=== PATIENT | female | born 1935 | race Caucasian/White ===

== ENCOUNTER 2017-05-24 09:34 | Inpatient (IN) | payer OTHER, MEDICARE ==
--- NOTE | 2017-05-24 10:03 | PDOC ---
*Physical Exam - Vital Signs Last Vital Signs Temp Pulse Resp BP Pulse Ox 97.6 F 97 H 24 130/62 96 05/24/17 09:38 05/24/17 09:38 05/24/17 09:38 05/24/17 09:38 05/24/17 09:38 <Brian Sidhu - Last Filed: 05/24/17 11:46> - Vital Signs Last Vital Signs Temp Pulse Resp BP Pulse Ox 97.6 F 97 H 24 130/62 96 05/24/17 09:38 05/24/17 09:38 05/24/17 09:38 05/24/17 09:38 05/24/17 09:38 <Amy Alfonso - Last Filed: 05/26/17 09:49> Heart Score/ECG Review #1 05/24/17 11:46 Vent rate 82 bpm Sinus rhythm with premature atrial complexes Low voltage QRS Borderline ECG <Brian Sidhu - Last Filed: 05/24/17 11:46> ED Treatment Course - LABORATORY CBC & Chemistry Diagram: 05/24/17 10:26 05/24/17 10:26 - ADDITIONAL ORDERS Additional order review: Laboratory Results 05/24/17 05/24/17 10:26 10:26 PT with INR 15.30 H INR 1.35 H Sodium 132 L Potassium 3.4 L Chloride 97 L Carbon Dioxide 26 Anion Gap 9 BUN 13 Creatinine 0.7 Creat Clearance w eGFR > 60 Random Glucose 93 Calcium 8.1 L Total Bilirubin 8.8 H D AST 241 H ALT 306 H Alkaline Phosphatase 728 H Total Protein 8.5 H Albumin 2.3 L Total Amylase 39 Lipase 138 05/24/17 10:26 RBC 2.55 L D MCV 108.3 H MCHC 33.2 RDW 20.7 H D MPV 7.7 Neutrophils % No Result Required. Lymphocytes % No Result Required. <Brian Sidhu - Last Filed: 05/24/17 11:46> - LABORATORY CBC & Chemistry Diagram: 05/26/17 06:30 05/26/17 06:30 <Amy Alfonso - Last Filed: 05/26/17 09:49> Medical Decision Making - Medical Decision Making 05/26/17 09:48 Pt seen in ED in conjunction with [employer], pt was referred to ED by PCP Dr Carrillo, for evaluation of weakness and jaundice, pt with abnormal lft's, sono done and pt was admitted to hospital under Dr Carrillo service for Jaundice and continued weakness. <Amy Alfonso - Last Filed: 05/26/17 09:49> *DC/Admit/Observation/Transfer <Brian Sidhu - Last Filed: 05/24/17 11:46> <Amy Alfonso - Last Filed: 05/26/17 09:49> Diagnosis at time of Disposition: Elevated bilirubin, Weakness
[2017-05-24 10:43] LABS: HEMATOCRIT 27.7 % (32.4-45.2); HEMOGLOBIN 9.2 GM/dL (10.7-15.3); MCHC 33.2 g/dl (32.0-36.0); MEAN CELL VOLUME 108.3 fl (80-96); MEAN PLT VOLUME 7.7 fl (7.5-11.1); PLATELET COUNT 251 K/MM3 (134-434); RBC 2.55 M/mm3 (3.60-5.2); RDW 20.7 % (11.6-15.6); WHITE BLOOD COUNT 9.8 K/mm3 (4.0-10.0)
[2017-05-24 11:03] LABS: INR 1.35 (0.82-1.09); PROTHROMBIN TIME (PATIENT) 15.3 SEC (9.98-11.88)
[2017-05-24 11:07] LABS: ALBUMIN 2.3 g/dl (3.4-5.0); ALK PHOS 728 U/L (45-117); AMYLASE 39 U/L (25-115); ANION GAP 9 (8-16); BILIRUBIN,TOTAL 8.8 mg/dL (0.2-1.0); BLOOD UREA NITROGEN 13 mg/dL (7-18); CALCIUM 8.1 mg/dL (8.5-10.1); CHLORIDE 97 mmol/L (98-107); CO2 26 mmol/L (21-32); CREATININE 0.7 mg/dL (0.55-1.02); GLUCOSE,RANDOM 93 mg/dL (74-106); LIPASE 138 U/L (73-393); POTASSIUM 3.4 mmol/L (3.5-5.1); SGOT/AST 241 U/L (15-37); SGPT/ALT 306 U/L (12-78); SODIUM 132 mmol/L (136-145); TOT PROT 8.5 g/dl (6.4-8.2)
--- NOTE | 2017-05-24 11:34 | PDOC ---
History of Present Illness - General Chief Complaint: Weakness Stated Complaint: SENT BY PCP Time Seen by Provider: 05/24/17 09:56 History Source: Patient Exam Limitations: No Limitations - History of Present Illness Initial Comments: 05/24/17 11:04 82-year-old female with no past medical history was sent by her PCP Dr. Nagy for evaluation of elevated bilirubin, jaundice, and generalized weakness over the past week. Patient has no other complaints at this time including chest pain, shortness of breath, fever, change in bowel pattern, change in urine pattern, increased bruising, or abdominal distention. Timing/Duration: 1 week Severity: moderate Associated Symptoms: reports: malaise, weakness Past History - Travel Traveled outside of the country in the last 30 days: No - Past Medical History Allergies/Adverse Reactions: Allergies Allergy/AdvReac Type Severity Reaction Status Date / Time No Known Allergies Allergy Verified 05/24/17 09:43 Home Medications: Ambulatory Orders NK [No Known Home Medication] 05/24/17 COPD: No - Suicide/Smoking/Psychosocial Hx Smoking History: Never smoked Patient Lives Alone: Yes Lives with/in: lives alone Review of Systems - Review of Systems Able to Perform ROS?: Yes Constitutional: Yes: Weakness HEENTM: No: Symptoms Reported Respiratory: No: Symptoms reported Cardiac (ROS): No: Symptoms Reported ABD/GI: No: Symptoms Reported : No: Symptoms Reported Musculoskeletal: Yes: Muscle Weakness Integumentary: No: Symptoms Reported Neurological: Yes: Weakness Hematologic/Lymphatic: No: Symptoms Reported *Physical Exam - Vital Signs Last Vital Signs Temp Pulse Resp BP Pulse Ox 97.6 F 97 H 24 130/62 96 05/24/17 09:38 05/24/17 09:38 05/24/17 09:38 05/24/17 09:38 05/24/17 09:38 - Physical Exam General Appearance: Yes: Nourished, Appropriately Dressed. No: Apparent Distress HEENT: positive: EOMI, RIGOBERTO, Scleral Icterus (R), Scleral Icterus (L) Neck: positive: Supple Respiratory/Chest: positive: Lungs Clear, Normal Breath Sounds. negative: Respiratory Distress, Accessory Muscle Use Cardiovascular: positive: Regular Rhythm, Regular Rate. negative: Murmur Gastrointestinal/Abdominal: positive: Soft. negative: Organomegaly, Distended, Guarding, Rebound, Tenderness Musculoskeletal: negative: CVA Tenderness Extremity: positive: Normal Capillary Refill. negative: Pedal Edema Integumentary: positive: Normal Color, Warm, Moist Neurologic: positive: Normal Mood/Affect, Motor Strength 5/5 (ambulatory) ED Treatment Course - LABORATORY CBC & Chemistry Diagram: 05/24/17 10:26 05/24/17 10:26 - ADDITIONAL ORDERS Additional order review: 05/24/17 10:26 RBC 2.55 L D MCV 108.3 H MCHC 33.2 RDW 20.7 H D MPV 7.7 Neutrophils % No Result Required. Lymphocytes % No Result Required. - RADIOLOGY Radiology Studies Ordered: Category Date Time Status ABDOMEN US -LIMITED [US] Stat Ultrasound 05/24/17 10:09 Ordered Medical Decision Making - Medical Decision Making 05/24/17 11:53 Patient here for evaluation of jaundice and generalized weakness for the past week. Patient had a CT of the abdomen done earlier this week that showed inflammatory process in the right upper quadrant recommending ultrasound. CT showed no signs of pancreatitis or biliary duct obstruction. i will contact Dr. Nagy. 05/24/17 12:44 Laboratory Tests 05/24/17 05/24/17 05/24/17 10:26 10:26 10:26 WBC 9.8 D Hgb 9.2 L D Hct 27.7 L D Plt Count 251 PT with INR 15.30 H INR 1.35 H Sodium 132 L Potassium 3.4 L Chloride 97 L Calcium 8.1 L Total Bilirubin 8.8 H D AST 241 H ALT 306 H Alkaline Phosphatase 728 H Total Protein 8.5 H Albumin 2.[address] Mac and wants to admit to med/surg and to consult GI. Ultrasound results pending. *DC/Admit/Observation/Transfer Diagnosis at time of Disposition: Elevated bilirubin, Weakness - Discharge Dispostion Admit: Yes - Referrals - Patient Instructions - Post Discharge Activity
[2017-05-24] MEDS ORDERED: SODIUM CHLORIDE 1,000 ML IV STA (11:56)
--- NOTE | 2017-05-24 12:03 | EKG ---
Test Reason : Blood Pressure : / mmHG Vent. Rate : 082 BPM Atrial Rate : 082 BPM P-R Int : 168 ms QRS Dur : 082 ms QT Int : 402 ms P-R-T Axes : 037 -14 011 degrees QTc Int : 469 ms SINUS RHYTHM WITH PREMATURE ATRIAL COMPLEXES LOW VOLTAGE QRS BORDERLINE ECG WHEN COMPARED WITH ECG OF 28-DEC-2014 10:15, PREMATURE ATRIAL COMPLEXES ARE NOW PRESENT Confirmed by MD MEÑO, JORDAN ([id number]) on 05/24/2017 12:02:47 PM Referred By: Confirmed By:JORDAN WILDER MD
[2017-05-24 12:14] LABS: ANISOCYTOSIS 2+; MACROCYTOSIS 2+; PLATELET ESTIMATE NORMAL
--- NOTE | 2017-05-24 13:39 | HP ---
Admitting History and Physical - Primary Care Physician PCP: Med Aguila - Admission Chief Complaint: JAUNDICE History of Present Illness: ANOREXIA/PAINLESS JAUNDICE/WEAKNESS OVER PAST THREE WEEKS. 82-year-old female with no past medical history was sent to ER by me for evaluation of elevated bilirubin, jaundice, and generalized weakness over the past week. Patient has no other complaints at this time including chest pain, shortness of breath, fever, change in bowel pattern, change in urine pattern, increased bruising, or abdominal pain. 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 Cardiovascular: No: AFIB Pulmonary: No: Asthma Gastrointestinal: No: Ascites, Cancer, Crohn's Disease Hepatobiliary: No: Cirrhosis Heme/Onc: Yes: Anemia Psych: No: Addictions Rheumatology: No: Fibromyalgia ENT: No: Allergic Rhinitis Endocrine: No: Diabetes Mellitus - Smoking History Smoking history: Never smoked - Alcohol/Substance Use Hx Alcohol Use: No History of Substance Use: reports: None - Social History Usual Living Arrangement: Yes: Alone History of Recent Travel: No Home Medications - Allergies Allergies/Adverse Reactions: Allergies Allergy/AdvReac Type Severity Reaction Status Date / Time No Known Allergies Allergy Verified 05/24/17 09:43 - Home Medications Home Medications: Ambulatory Orders NK [No Known Home Medication] 05/24/17 Family Disease History - Family Disease History Family History: Unremarkable Review of Systems - Review of Systems Constitutional: reports: Lethargy, Loss of Appetite, Unintentional Wgt. Loss, Weakness. denies: Fever Eyes: denies: Blurred Vision HENT: denies: Difficult Swallowing Neck: denies: Decreased ROM Cardiovascular: denies: Chest Pain Respiratory: denies: Cough, SOB on Exertion Gastrointestinal: denies: Abdominal Pain, Bloating, Constipation, Diarrhea, Vomiting Genitourinary: reports: No Symptoms Breasts: reports: No Symptoms Reported Musculoskeletal: reports: No Symptoms Integumentary: reports: No Symptoms Neurological: reports: Weakness Endocrine: reports: No Symptoms Hematology/Lymphatic: reports: No Symptoms Psychiatric: reports: Depression Physical Examination Vital Signs: Vital Signs Temperature 97.6 F 05/24/17 09:38 Pulse Rate 76 05/24/17 12:34 Respiratory Rate 17 05/24/17 12:34 Blood Pressure 127/57 05/24/17 12:34 O2 Sat by Pulse Oximetry (%) 96 05/24/17 09:38 Constitutional: Yes: Calm Eyes: Yes: EOM Intact, Sclera Icterus HENT: Yes: Normocephalic Neck: Yes: Trachea Midline Cardiovascular: Yes: Regular Rate and Rhythm Respiratory: Yes: CTA Bilaterally Gastrointestinal: Yes: Normal Bowel Sounds, Soft ...Rectal Exam: Yes: Deferred Renal/: Yes: WNL Breast(s): Yes: WNL Musculoskeletal: Yes: WNL Extremities: Yes: WNL Integumentary: Yes: Jaundice Neurological: Yes: Alert Labs: CBC, BMP 05/24/17 10:26 05/24/17 10:26 rest reviewed Imaging - Results Chest X-ray: Report Reviewed, Image Reviewed Cat Scan: Report Reviewed, Image Reviewed Ultrasound: Report Reviewed Problem List - Problems (1) Jaundice Code(s): R17 - UNSPECIFIED JAUNDICE (2) Elevated bilirubin Code(s): R17 - UNSPECIFIED JAUNDICE (3) Weakness Code(s): R53.1 - WEAKNESS (4) Anorexia Code(s): R63.0 - ANOREXIA (5) Weight loss Code(s): R63.4 - ABNORMAL WEIGHT LOSS Assessment/Plan PAINLESS JAUNDICE WITH PROGRESSIVE ANOREXIA AND WEIGHT LOSS CONCERNS FOR NEOPLASTIC DISEASE WILL ASK GI TO EVAL CT ABD/US ALREADY PERFORMED CA-19-9 /CEA LEVELS ARE MAXWELL AGUILA MD
--- NOTE | 2017-05-24 14:55 | CON.GI ---
Consult Consult Specialty:: Gastreoenterology Referred by:: Dr Nagy Reason for Consultation:: Jaundice - History of Present Illness Chief Complaint: Jaundice and weight loss History of Present Illness: 82F developed anoreaxi and wekaness about 3 weeks ago. Seen in the office by Dr Nagy who noted her jaundice and referred her for a CT scan at [facility]. This revealed some GB wall thickening vs a gallstone but no ductal dilation. Today's sonogram reveals no gallstones. She has had a diffuse abdominal ache but no colicky pain, vomiting or diarrhea. She denies any h/o liver disease but her father age 42 of liver disease. She has a glass of wine once a week. No IVDA,tattoos or tranfusions. 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 : [employer] [facility] History of Recent Travel: No Home Medications - Allergies Allergies/Adverse Reactions: Allergies Allergy/AdvReac Type Severity Reaction Status Date / Time No Known Allergies Allergy Verified 05/24/17 09:43 - Home Medications Home Medications: Ambulatory Orders NK [No Known Home Medication] 05/24/17 Family Disease History - Family Disease History Family Disease History: CA: Brother ( lung cancer, smoker), Other: Father ( 42 liver disease), Mother (lived to 78), Sister (lived to 101) Review of Systems - Review of Systems Constitutional: reports: Lethargy, Loss of Appetite, Unintentional Wgt. Loss Eyes: reports: No Symptoms HENT: reports: No Symptoms Neck: reports: No Symptoms Cardiovascular: reports: No Symptoms Respiratory: reports: No Symptoms Gastrointestinal: reports: Abdominal Pain Genitourinary: reports: No Symptoms Musculoskeletal: reports: No Symptoms Integumentary: reports: No Symptoms Neurological: reports: No Symptoms Endocrine: reports: No Symptoms Physical Exam-GI Vital Signs: Vital Signs Temperature 97.6 F 05/24/17 09:38 Pulse Rate 76 01/27/18 12:34 Respiratory Rate 17 05/24/17 12:34 Blood Pressure 127/57 05/24/17 12:34 O2 Sat by Pulse Oximetry (%) 100 05/24/17 13:33 CBC,CMP WBC 9.8 K/mm3 (4.0-10.0) D 05/24/17 10:26 RBC 2.55 M/mm3 (3.60-5.2) L D 05/24/17 10:26 Hgb 9.2 GM/dL (10.7-15.3) L D 05/24/17 10:26 Hct 27.7 % (32.4-45.2) L D 05/24/17 10:26 MCV 108.3 fl (80-96) H 05/24/17 10:26 MCH 36.0 pg (25.7-33.7) H D 05/24/17 10:26 MCHC 33.2 g/dl (32.0-36.0) 05/24/17 10:26 RDW 20.7 % (11.6-15.6) H D 05/24/17 10:26 Plt Count 251 K/MM3 (134-434) 05/24/17 10:26 MPV 7.7 fl (7.5-11.1) 05/24/17 10:26 Neutrophils % No Result Required. 05/24/17 10:26 Neutrophils % (Manual) 64.7 % (42.8-82.8) 05/24/17 10:26 Band Neutrophils % 1.0 % 05/24/17 10:26 Lymphocytes % No Result Required. 05/24/17 10:26 Lymphocytes % (Manual) 13.1 % (8-40) 05/24/17 10:26 Monocytes % (Manual) 10 % (3.8-10.2) 05/24/17 10:26 Eosinophils % (Manual) 9.1 % (0-4.5) H 05/24/17 10:26 Basophils % (Manual) 1.0 % (0-2.0) 05/24/17 10:26 Myelocytes % (Man) 0 % (0-2) 05/24/17 10:26 Promyelocytes % (Man) 0 % (0-2) 05/24/17 10:26 Metamyelocytes 0 % (0-2) 05/24/17 10:26 Plasma Cells 1 (0-20) 05/24/17 10:26 Hypochromia 0 05/24/17 10:26 Platelet Estimate Normal 05/24/17 10:26 Polychromasia 2+ 05/24/17 10:26 Poikilocytosis 0 05/24/17 10:26 Anisocytosis 2+ 05/24/17 10:26 Microcytosis 0 05/24/17 10:26 Macrocytosis 2+ 05/24/17 10:26 Stomatocytes 3+ 05/24/17 10:26 Sodium 132 mmol/L (136-145) L 05/24/17 10:26 Potassium 3.4 mmol/L (3.5-5.1) L 05/24/17 10:26 Chloride 97 mmol/L (98-107) L 05/24/17 10:26 Carbon Dioxide 26 mmol/L (21-32) 05/24/17 10:26 Anion Gap 9 (8-16) 05/24/17 10:26 BUN 13 mg/dL (7-18) 05/24/17 10:26 Creatinine 0.7 mg/dL (0.55-1.02) 05/24/17 10:26 Creat Clearance w eGFR > 60 (>60) 05/24/17 10:26 Random Glucose 93 mg/dL (74-106) 05/24/17 10:26 Calcium 8.1 mg/dL (8.5-10.1) L 05/24/17 10:26 Total Bilirubin 8.8 mg/dL (0.2-1.0) H D 05/24/17 10:26 AST 241 U/L (15-37) H 05/24/17 10:26 ALT 306 U/L (12-78) H 05/24/17 10:26 Alkaline Phosphatase 728 U/L (45-117) H 05/24/17 10:26 Total Protein 8.5 g/dl (6.4-8.2) H 05/24/17 10:26 Albumin 2.3 g/dl (3.4-5.0) L 05/24/17 10:26 Total Amylase 39 U/L (25-115) 05/24/17 10:26 Lipase 138 U/L (73-393) 05/24/17 10:26 Constitutional: Yes: Well Nourished, Calm Eyes: Yes: Sclera Icterus HENT: Yes: Atraumatic Neck: Yes: Supple Cardiovascular: Yes: Regular Rate and Rhythm Respiratory: Yes: CTA Bilaterally Gastrointestinal Inspection: Yes: Other (no scars) ...Palpate: Yes: Soft, Other (nontender, no masses) ...Rectal Exam: Yes: Guaiac Negative (no rectal masses) Labs: CBC, BMP 05/24/17 10:26 05/24/17 10:26 INR, PTT INR 1.35 (0.82-1.09) H 05/24/17 10:26 Imaging - Results Cat Scan: Report Reviewed (Christopher Aguilera Name: [facility] GAR[facility] DEPARTMENT OF RADIOLOGY Phys: Med Nagy MD : 1935 Age: 82 Sex: F [facility] Acct: [id number] Loc: [facility] [address] [facility]. Exam Date: 05/21/17 Status: REG REF JALEN Domínguez [address] Unit Number: [id number] EXAM#: TYPE/EXAM: RESULT: [id number] CT/ABDOMEN PELVIS CT W/O CONTR EXAM: CT abdomen and pelvis without contrast. INDICATION: Other chronic pancreatitis. TECHNIQUE: CT of the abdomen and pelvis without oral contrast and without intravenous contrast. COMPARISON: None available. FINDINGS: Evaluation of the solid viscera, vessels and bowel is limited without contrast. There is traction bronchiectasis in the right middle lobe and lingula. There is subpleural reticulation in the left lung base and right middle lobe and multifocal linear scarring bilateral lower lobes, right middle lobe and lingula. There is a 4 mm nodule in the left lung base (image 14 of series 4). The heart is not enlarged. The liver is normal in size and contour. There is mild hepatic steatosis. Nodular calcification in the left hepatic lobe may be the sequela of prior granulomatous disease. The spleen is borderline enlarged, measuring 11.5 x 7.5 cm. The gallbladder is not pathologically distended. There is focal gallbladder wall thickening versus layering cholelithiasis. There is nonspecific gallbladder wall thickening. The common bile duct is not dilated. The unenhanced pancreas is grossly unremarkable. There is a subcentimeter nodularity along the left adrenal gland which may be attributed to adenomatous hyperplasia. No nodular mass in the right adrenal gland. Normal size kidneys. No obstructive uropathy. No urinary tract calculus identified. Normal caliber abdominal aorta. There are no pathologically enlarged retroperitoneal lymph nodes by CT size criteria. The stomach is underdistended, which limits evaluation. There is a very small hiatal hernia. There is no bowel obstruction. There is no CT evidence of acute appendicitis or diverticulitis. There is no free intraperitoneal air. No free fluid within the abdomen or pelvis. The urinary bladder is underdistended, limiting evaluation. The uterus is lobulated and leiomyomatous. There are no pathologically enlarged pelvic sidewall lymph nodes by CT size criteria. There are small bilateral fat- containing inguinal hernias. There is osseous demineralization with no evidence of acute fracture in the visualized osseous structures. There is degenerative grade 1 anterolisthesis of L4 on L5, measuring 7 mm. At L4-L5, there is severe disc space narrowing, facet hypertrophy with uncovering of the posterior annulus resulting in severe canal stenosis and mild to moderate narrowing of both neural foramina. There are mild to moderate osteoarthritic changes in both hips. IMPRESSION: 1. No CT evidence of pancreatitis at this time. No pancreatic parenchymal calcifications to suggest chronic pancreatitis. 2. Focal gallbladder wall calcification versus cholelithiasis. No CT evidence of acute cholecystitis. Gallbladder wall thickening is nonspecific with a broad differential including chronic cholecystitis and adjacent right upper quadrant inflammatory processes. Please correlate clinically and with right upper quadrant ultrasound. 3. Mild hepatic steatosis. 4. Borderline mild splenomegaly. 5. Lumbar spondylosis with degenerative grade 1 anterolisthesis of L4 and L5 and severe canal stenosis at L4-L5 as described above. 6. Please refer to the report above for additional findings. Reported By: Mendy Odom DO 05/21/171628 Med Nagy Technologist: Lam Riddle Transcribed Date/Time: 05/21/171628 Warehouse Coordinator: Mendy Odom DO Printed Date/Time: By: Signed by : Mendy Odom Signed on: 21-May-2017 16:29) Ultrasound: Report Reviewed (Karrie Aguilera Name: RICO GARNETT DEPARTMENT OF RADIOLOGY Phys: Beata Flores DEBATE DIRECTOR : 1935 Age: 82 Sex: F [facility] Acct: [id number] Loc: [facility] [facility] Exam Date: 05/24/17 Status: JALEN Pearson [id number] Unit Number: [id number] EXAM#: TYPE/EXAM: RESULT: [id number] US/ABDOMEN US -LIMITED HISTORY PROVIDED: Right upper quadrant pain. Real time examination of the abdomen demonstrates the following: The gallbladder is normal in size and free of calculi with no evidence of intra or extrahepatic biliary duct dilatation. The liver is normal in size and texture with no intrahepatic masses seen. Hepatopedal flow is documented within the main portal vein on Doppler imaging. The pancreas is normal in size and texture with no pancreatic masses identified. There is no evidence of hydronephrosis or acute abnormalities of the right kidney. There is no evidence of AAA. The IVC is patent. IMPRESSION: Normal abdominal sonogram with no evidence of cholelithiasis or acute pathology. Reported By: Nickolas Tavarez MD 05/24/17 1254 Beata Flores Technologist: Isa Partida Transcribed Date/Time: 05/24/17 1254 Warehouse Coordinator: Nickolas Tavarez Printed Date/Time: By: Signed by: Nickolas Tavarez Signed on: 24-May-2017 12:54) Problem List - Problems (1) Abdominal pain Assessment/Plan: The pain and anemia raise the possibility of a UGI neoplasm invading the liver directly. May need an EGD and colonoscopy Code(s): R10.9 - UNSPECIFIED ABDOMINAL PAIN (2) Anorexia Code(s): R63.0 - ANOREXIA (3) Jaundice Assessment/Plan: The LFT pattern suggests acute obstructive jaundice but given lack of ductal dilation and gallstones need to consider hepatocellular disease. No obvious recent drug usage to implicate drug induced liver disease. Given her FH, hypoalbuminemia, anemia, mild coagulopathy will screen for chronic liver disease. Will pursue MRCP and MRI to look for a small pancreatic neoplasm. If MRCP reveals obstruction will consider ERCP for stent insertion, otherwise may need to refer for an EUS as an outpatient. I discussed the potential need for an ERCP and the risks of pancreatitis with multiorgan failure, perforation and hemorrhage so that Rico can make an informed consent if necessary. Told her same risks exist for EGD and colonoscopy aside from the pancreatitis. Code(s): R17 - UNSPECIFIED JAUNDICE (4) Elevated bilirubin Code(s): R17 - UNSPECIFIED JAUNDICE (5) Weakness Code(s): R53.1 - WEAKNESS (6) Weight loss Code(s): R63.4 - ABNORMAL WEIGHT LOSS
[2017-05-24] MEDS ORDERED: PHYTONADIONE 10 MG/1 ML AMP IM ONE (15:18)
[2017-05-24 16:47] VITALS: BMI 24.4
[2017-05-24 17:25] LABS: URINE APPEARANCE CLEAR; URINE BLOOD NEGATIVE (NEGATIVE); URINE COLOR AMBER; URINE GLUCOSE (UA) NEGATIVE (NEGATIVE); URINE KETONE TRACE (NEGATIVE); URINE NITRITE NEGATIVE (NEGATIVE); URINE PROTEIN NEGATIVE (NEGATIVE); URINE UROBILINOGEN 4.0 E.U/dl mg/dL (0.2-1.0)
[2017-05-24 17:59] LABS: URINE LEUK ESTERASE 1+ (NEGATIVE)
[2017-05-24 18:06] LABS: EPI CELLS RARE /HPF (FEW); URINE BACTERIA RARE /hpf (NONE SEEN); URINE MUCUS FEW
[2017-05-25 07:52] LABS: BASO % 2.4 % (0-2.0); EOS % 12.8 % (0-4.5); HEMATOCRIT 24.3 % (32.4-45.2); HEMOGLOBIN 8.2 GM/dL (10.7-15.3); LYMPH % 16.6 % (8-40); MCH 37.2 pg (25.7-33.7); MCHC 33.6 g/dl (32.0-36.0); MEAN CELL VOLUME 110.6 fl (80-96); MEAN PLT VOLUME 7.8 fl (7.5-11.1); NEUT % 59.2 % (42.8-82.8); PLATELET COUNT 229 K/MM3 (134-434); RDW 20.6 % (11.6-15.6); RETICULOCYTES 11.56 % (0.5-1.5); WHITE BLOOD COUNT 8.7 K/mm3 (4.0-10.0)
[2017-05-25 08:13] LABS: CHLORIDE 102 mmol/L (98-107); POTASSIUM 3.5 mmol/L (3.5-5.1); SODIUM 135 mmol/L (136-145)
[2017-05-25 08:27] LABS: INR 1.33 (0.82-1.09)
[2017-05-25 08:28] LABS: ALK PHOS 613 U/L (45-117); ANION GAP 8 (8-16); BILIRUBIN,TOTAL 6.4 mg/dL (0.2-1.0); BLOOD UREA NITROGEN 10 mg/dL (7-18); CALCIUM 7.5 mg/dL (8.5-10.1); CO2 25 mmol/L (21-32); CREATININE 0.6 mg/dL (0.55-1.02); GLUCOSE,RANDOM 79 mg/dL (74-106); SGOT/AST 224 U/L (15-37); SGPT/ALT 242 U/L (12-78); TOT PROT 7.2 g/dl (6.4-8.2)
--- NOTE | 2017-05-25 12:11 | PN ---
Progress Note (short form) - Note Progress Note: MEDICAL ATTENDING VSS/AFEBRILE ICTERIC CLEAR LUNG GREENE S1S2 BS+ SOFT NONTENDER NEGATIVE HEPATOSPLENOMEGALY NO EDEMA LABS/MEDS/NOTES/IMAGES GI EVAL APPRECIATED W/U THUS FAR UNREVEALING AGREE WITH IMAGING STUDIES/SEROLOGY PENDING R AYLA CANDELARIO Problem List - Problems (1) Jaundice Code(s): R17 - UNSPECIFIED JAUNDICE (2) Elevated bilirubin Code(s): R17 - UNSPECIFIED JAUNDICE (3) Weakness Code(s): R53.1 - WEAKNESS (4) Anorexia Code(s): R63.0 - ANOREXIA (5) Weight loss Code(s): R63.4 - ABNORMAL WEIGHT LOSS
--- NOTE | 2017-05-25 14:22 | PN ---
GI Progress Note Subjective: GI Note: Jordana's LFTs, in particular her bilirubin and alkaline phosphatase has decreased significantly since yesterday. Her anemia has also worsened however. Doppler has exclude Budd Chiari Syndrome. Her CRP argues against a neoplasm or infection. Her low CRP argues against attributing her elevated ferritin to an acute phase reaction. She may have hemochromatosis. - Objective Vital Signs: Vital Signs Temperature 98.0 F 05/25/17 10:00 Pulse Rate 82 05/25/17 10:00 Respiratory Rate 18 05/25/17 10:00 Blood Pressure 112/56 05/25/17 10:00 O2 Sat by Pulse Oximetry (%) 96 05/25/17 09:00 Laboratory Tests 05/24/17 05/24/17 05/24/17 10:26 10:26 10:26 Hgb 9.2 L D Hct 27.7 L D Plt Count 251 PT with INR 15.30 H INR 1.35 H Ferritin Total Bilirubin 8.8 H D AST 241 H ALT 306 H Alkaline Phosphatase 728 H C-Reactive Protein Albumin 2.3 L Total Amylase 39 Lipase 138 05/25/17 05/25/17 06:00 06:00 Hgb 8.2 L D Hct Plt Count PT with INR INR Ferritin 1269.506 H Total Bilirubin 6.4 H D AST 224 H ALT 242 H Alkaline Phosphatase 613 H C-Reactive Protein 1.8 H Albumin Total Amylase Lipase Constitutional: No Distress, Anxious Eyes: Yes: Sclera Icterus ...Auscultate: Yes: Normoactive Bowel Sounds ...Palpate: Yes: Soft, Other (nontender) Labs: CBC, BMP 05/25/17 06:00 05/25/17 06:00 INR, PTT INR 1.33 (0.82-1.09) H 05/25/17 06:00 Problem List - Problems (1) Abdominal pain Code(s): R10.9 - UNSPECIFIED ABDOMINAL PAIN (2) Anorexia Code(s): R63.0 - ANOREXIA (3) Jaundice Assessment/Plan: Obstructive jaundice vs hepatocellular disease vs hemolysis. Her dwindling Hb and elevated retic suggest hemolysis. I have asked the lab to run a direct bilirubin. Will check haptoglobin, LDH etc. I discussed the case with Dr Nagy and will consult hematology. Hemachromatosis would not explain the LFT fluctuation. She did take 1 dose of an NSAID a week before her symptoms began. Await MRCP and MRI. Code(s): R17 - UNSPECIFIED JAUNDICE (4) Elevated bilirubin Code(s): R17 - UNSPECIFIED JAUNDICE (5) Weakness Code(s): R53.1 - WEAKNESS (6) Weight loss Code(s): R63.4 - ABNORMAL WEIGHT LOSS
[2017-05-25] MEDS ORDERED: ACETAMINOPHEN 325 MG TABLET (FP) PO PRN (21:32)
[2017-05-25] MEDS ORDERED: methylPREDNISolone NA SUCC 40 MG/1 ML VIAL IVPUSH ONE (21:45)
[2017-05-25] MEDS: DEXTROSE 5%-0.45% SALINE 1,000 ML IV SCH (22:22)
[2017-05-26 06:07] LABS: SERUM IRON SATURATION 80 % (15-55); TOTAL IRON BINDING CAPACITY 205 ug/dL (250-450); UIBC 42 ug/dL (118-369)
[2017-05-26 07:54] LABS: BASO % 2.2 % (0-2.0); EOS % 1.8 % (0-4.5); HEMATOCRIT 25.1 % (32.4-45.2); HEMOGLOBIN 8.2 GM/dL (10.7-15.3); LYMPH % 12.4 % (8-40); MCH 36.8 pg (25.7-33.7); MCHC 32.8 g/dl (32.0-36.0); MEAN CELL VOLUME 112.3 fl (80-96); MONO % 7.6 % (3.8-10.2); PLATELET COUNT 197 K/MM3 (134-434); RBC 2.24 M/mm3 (3.60-5.2); RDW 20.6 % (11.6-15.6); WHITE BLOOD COUNT 7.5 K/mm3 (4.0-10.0)
[2017-05-26 08:05] LABS: ALBUMIN 1.9 g/dl (3.4-5.0); ANION GAP 6 (8-16); BILIRUBIN,DIRECT 4.7 mg/dL (0.0-0.2); BILIRUBIN,TOTAL 5.8 mg/dL (0.2-1.0); BLOOD UREA NITROGEN 12 mg/dL (7-18); CALCIUM 7.5 mg/dL (8.5-10.1); CHLORIDE 106 mmol/L (98-107); CO2 26 mmol/L (21-32); CREATININE 0.6 mg/dL (0.55-1.02); GLUCOSE,RANDOM 135 mg/dL (74-106); LDH 514 U/L (84-246); POTASSIUM 4.5 mmol/L (3.5-5.1); SGOT/AST 181 U/L (15-37); SGPT/ALT 226 U/L (12-78); SODIUM 138 mmol/L (136-145); TOT PROT 7.2 g/dl (6.4-8.2)
[2017-05-26 08:06] LABS: ALK PHOS 641 U/L (45-117)
[2017-05-26 08:08] LABS: ADD RBC MORPHOLOGY YES
--- NOTE | 2017-05-26 09:07 | PN ---
Progress Note, Physician Chief Complaint: ID Asked to see this 82 year old female who says she has never been in the hospital with weight loss weakness anorexia jaundice elevated LFTs. Sonogram shows no gall stones or dilatation. Seen by Dr Wilson yesterday MRCP considered. Abdominal discomfort but no pain. Afebrile on admission but spike fever 102.6 felt warm no chills. Cultures drawn. Currently she feels well Denies couph urinary complaints, travel. lives alone with her dog. - Current Medication List Current Medications: Active Medications Acetaminophen (Tylenol -) 650 mg PO Q4H PRN PRN Reason: PAIN OR FEVER >101 Last Admin: 05/25/17 22:22 Dose: 650 mg Dextrose/Sodium Chloride (D5-1/2ns -) 1,000 mls @ 42 mls/hr IV ASDIR JANE Last Admin: 05/25/17 22:22 Dose: 42 mls/hr - Objective Vital Signs: Vital Signs Temperature 97.3 F L 05/26/17 07:49 Pulse Rate 80 05/26/17 07:49 Respiratory Rate 18 05/26/17 07:49 Blood Pressure 129/74 05/26/17 07:49 O2 Sat by Pulse Oximetry (%) 97 05/25/17 21:00 Constitutional: Yes: Well Nourished, No Distress Eyes: Yes: WNL, Conjunctiva Clear HENT: Yes: Atraumatic Neck: Yes: WNL, Supple. No: Lymphadenopathy Cardiovascular: Yes: Murmur, S1, S2, Other (grade 2/6 systolic aortic murmur) Respiratory: Yes: WNL, Regular, CTA Bilaterally Gastrointestinal: Yes: WNL, Normal Bowel Sounds, Soft. No: Tenderness Edema: No Labs: CBC, BMP 05/26/17 06:30 05/26/17 06:30 INR, PTT INR 1.33 (0.82-1.09) H 05/25/17 06:00 Problem List - Problems (1) Fever, unknown origin Code(s): R50.9 - FEVER, UNSPECIFIED (2) Elevated LFTs Code(s): R79.89 - OTHER SPECIFIED ABNORMAL FINDINGS OF BLOOD CHEMISTRY (3) Jaundice Code(s): R17 - UNSPECIFIED JAUNDICE (4) Hemolysis Code(s): [id number] - Assessment/Plan Laboratory Tests 05/24/17 05/25/17 05/25/17 16:50 06:00 06:00 WBC Plt Count Neutrophils % Lymphocytes % Monocytes % Basophils % INR 1.33 H BUN Creatinine Total Bilirubin AST ALT Alkaline Phosphatase LD Total Total Protein Tumor Marker AFP Pending CA 19-9 Antigen Pending Ur Leukocyte Esterase 1+ H Urine WBC (Auto) 10 Urine RBC (Auto) 4 Hepatitis A Ab Total Pending Hep Bs Antigen Pending Hep Bs Antibody Pending Hep B Core Total Ab Pending Hepatitis C Antibody Pending 05/26/17 05/26/17 06:30 06:30 WBC 7.5 Plt Count 197 Neutrophils % 76.0 D Lymphocytes % 12.4 D Monocytes % 7.6 Basophils % 2.2 H INR BUN 12 Creatinine 0.6 Total Bilirubin 5.8 H AST 181 H ALT 226 H Alkaline Phosphatase 641 H LD Total 514 H Total Protein 7.2 Tumor Marker AFP CA 19-9 Antigen Ur Leukocyte Esterase Urine WBC (Auto) Urine RBC (Auto) Hepatitis A Ab Total Hep Bs Antigen Hep Bs Antibody Hep B Core Total Ab Hepatitis C Antibody Assessment Fever unknown origin consider passage of gall stone Jaundice ruling out biliary stone Macrocytic anemia consider B12 folate deficiency high reticulocyte count ? hemolysis but mostly direct bilirubin Plan As discussed Should have MRCP Think we should get hematology evaluation to look at smear cold aggluts ect evaluate hemolysis B12 Cultures pending so far blood cultures no growth prelim She does not need antibiotics now but should she spike fever would start Zosyn 4.5grs q 8 H ESR CRP CJ Prescott MD
[2017-05-26 09:27] LABS: ANISOCYTOSIS 2+; MACROCYTOSIS 2+
--- NOTE | 2017-05-26 10:30 | PN ---
Progress Note (short form) - Note Progress Note: Feels about the same. No CP or SOB. Nervous about MRCP. Intake & Output 05/23/17 05/24/17 05/25/17 05/26/17 23:59 23:59 23:59 23:59 Intake Total 300 294 Balance 300 294 Weight 121 lb Last Vital Signs Temp Pulse Resp BP Pulse Ox 97.3 F L 80 18 129/74 97 05/26/17 07:49 05/26/17 07:49 05/26/17 07:49 05/26/17 07:49 05/25/17 21:00 Active Medications Alprazolam (Xanax -) 0.5 mg PO ONCE ONE Stop: 05/26/17 09:31 Dextrose/Sodium Chloride (D5-1/2ns -) 1,000 mls @ 42 mls/hr IV ASDIR JANE Last Admin: 05/25/17 22:22 Dose: 42 mls/hr Constitutional: Yes: Well Nourished, mildly anxious Eyes: Yes: Sclera Icterus HENT: Yes: Atraumatic Neck: Yes: Supple Cardiovascular: Yes: Regular Rate and Rhythm Respiratory: Yes: CTA Bilaterally Gastrointestinal Inspection: Yes: Other (no scars) ...Palpate: Yes: Soft, Other (nontender, no masses) Labs: Laboratory Results - last 24 hr 05/25/17 05/25/17 05/26/17 06:00 14:31 06:30 WBC 7.5 RBC 2.24 L Hgb 8.2 L Hct 25.1 L MCV 112.3 H MCH 36.8 H MCHC 32.8 RDW 20.6 H Plt Count 197 MPV 8.0 Neutrophils % 76.0 D Lymphocytes % 12.4 D Monocytes % 7.6 Eosinophils % 1.8 D Basophils % 2.2 H Anisocytosis 2+ Macrocytosis 2+ Sodium Potassium Chloride Carbon Dioxide Anion Gap BUN Creatinine Random Glucose Calcium Iron 163 H TIBC 205 L Iron Saturation 80 H Total Bilirubin Direct Bilirubin 4.9 H AST ALT Alkaline Phosphatase LD Total Total Protein Albumin 05/26/17 06:30 WBC RBC Hgb Hct MCV MCH MCHC RDW Plt Count MPV Neutrophils % Lymphocytes % Monocytes % Eosinophils % Basophils % Anisocytosis Macrocytosis Sodium 138 Potassium 4.5 Chloride 106 Carbon Dioxide 26 Anion Gap 6 L BUN 12 Creatinine 0.6 Random Glucose 135 H Calcium 7.5 L Iron TIBC Iron Saturation Total Bilirubin 5.8 H Direct Bilirubin 4.7 H AST 181 H ALT 226 H Alkaline Phosphatase 641 H LD Total 514 H Total Protein 7.2 Albumin 1.9 L Problem List - Problems (1) Jaundice Code(s): R17 - UNSPECIFIED JAUNDICE (2) Elevated bilirubin Code(s): R17 - UNSPECIFIED JAUNDICE (3) Weakness Code(s): R53.1 - WEAKNESS (4) Anorexia Code(s): R63.0 - ANOREXIA (5) Weight loss Code(s): R63.4 - ABNORMAL WEIGHT LOSS PLAN: MRCP O2 as needed SCDs Hematology/Oncology evaluation has been called Follow AM labs Xanax has been ordered prior to MRCP Dr Cornejo
--- NOTE | 2017-05-26 10:34 | CONS ---
DATE OF CONSULTATION: HISTORY: This is an 82-year-old female who states she has never been previously hospitalized admitted now for a [id number] of anorexia, generalized weakness, and jaundice. She saw Dr. Guerrero who recommended that she be admitted to the hospital for further evaluation. The workup has included a sonogram, which showed thickening versus a gallstone but no ductal dilatation. On CAT scan, she had a fatty liver but no evidence of a liver mass or common duct dilatation. Her liver enzymes are noted to be elevated, and I am asked to see her now after she developed fever last night to 102.6. At that time, she denied any chills, abdominal pain, urinary complaints, shortness of breath, rash, headaches, or other symptoms. She has no history of recent travel. She lives alone as a for 2 years and has a pet dog as her lpn private duty. She has not been exposed to any person that she knew had any communicable illness and no history of alcohol use or other hepatotoxic medications. PAST MEDICAL HISTORY: As noted above. SOCIAL HISTORY: Never smoked. No history of alcohol use. Lives alone. FAMILY HISTORY: Reviewed and noncontributory. REVIEW OF SYSTEMS: Respiratory: No cough or shortness of breath. Cardiac: No chest pain, palpitations, syncope. Gastrointestinal: Generalized weakness. No abdominal pain. Positive jaundice. Dark urine noted. No change in bowel habits. White stools. Positive weight loss. PHYSICAL EXAMINATION: General: She is an alert female in no acute distress. Vital Signs: The temperature now 97.3, T-max 102.6, pulse 80, blood pressure 130/74, respirations 18. HEENT: Reveals scleral icterus. Neck: Supple with no adenopathy. Lungs: Clear to percussion and auscultation. Heart: S1, S2. Regular rhythm with a 2/6 systolic murmur heard at the lower sternal border. Abdomen: Soft and nontender without hepatosplenomegaly. Extremities: Without clubbing or cyanosis. Skin: Icteric. White count on admission 9.8, hemoglobin 9.2, hematocrit 27.7, MCV 108, platelet count 251 with 65% polys, 1 band, 13 lymphocytes, 10 monocytes, and 9% eosinophils. A reticulocyte count 11.56. INR 1.33. BUN and creatinine normal. Bilirubin on admission 8.8 with an AST 241, ALT 306, alkaline phosphatase 728, total protein 8.5, albumin 2.3, lipase 138, amylase 39. Urinalysis with 10 WBCs, 1+ leukocyte esterase, and 4 RBCs. Hepatitis markers pending. ASSESSMENT: An 82-year-old female who presents with generalized weakness, loss of appetite, and painless jaundice with elevated liver enzymes and a complete blood count with a macrocytic anemia either elevated reticulocyte count suggesting hemolysis. Against hemolysis is the fact that her bilirubin is predominantly direct bilirubin. She spikes fever last night but currently appears well. As directed with Dr. Bansal and Dr. Guerrero, at this point would concur with the need for Hematology evaluation to review her peripheral smear with further workup of her anemia including sedimentation rate, CJ, cold agglutinins, B12, and [place] levels. She should have an MRCP performed to rule out biliary obstruction with fever possibly secondary to biliary obstruction. Cultures of blood and urine currently pending with blood cultures thus far no growth. Should she spike fever again, would empirically treat her with Zosyn 4.5 g every 8 hours. SWETA FERNANDEZ M.D. [id number]
--- NOTE | 2017-05-26 13:48 | PN ---
Physical Exam: SUBJECTIVE: Patient seen and examined at bedside. Lying comfortably. Spiked a fever of 102 overnight. Feels well overall. Abdominal pain has resolved. No new complaints. No headache, CP, palpitations, abdominal pain, N/V. OBJECTIVE: Vital Signs Period Temp Pulse Resp BP Sys/Morales Pulse Ox Last 24 Hr 97.3 F-102.6 F 80-101 18-86 102-137/48-74 97 GENERAL: AAOx3, NAD HEAD: NC/AT EYES: scleral icterus improved. ENT: moist mucous membranes. NECK: supple and no JVD LUNGS: Right sided basilar rales. Otherwise CTAB, no wheezing or rhonchi. HEART:RRR, 2/6 CASIE RSB ABDOMEN: Soft, nontender, normal bowel sound, no rebound or guarding EXTREMITIES: 2+ pulses, warm, well-perfused, trace edema. NEUROLOGICAL: Normal speech PSYCH: Normal mood, normal affect. Laboratory Results - last 24 hr 05/25/17 05/25/17 05/26/17 06:00 14:31 06:30 WBC 7.5 RBC 2.24 L Hgb 8.2 L Hct 25.1 L MCV 112.3 H MCH 36.8 H MCHC 32.8 RDW 20.6 H Plt Count 197 MPV 8.0 Neutrophils % 76.0 D Lymphocytes % 12.4 D Monocytes % 7.6 Eosinophils % 1.8 D Basophils % 2.2 H Anisocytosis 2+ Macrocytosis 2+ Sodium Potassium Chloride Carbon Dioxide Anion Gap BUN Creatinine Random Glucose Calcium Iron 163 H TIBC 205 L Iron Saturation 80 H Total Bilirubin Direct Bilirubin 4.9 H AST ALT Alkaline Phosphatase LD Total C-Reactive Protein Total Protein Albumin Serum Folate 05/26/17 05/26/17 05/26/17 06:30 10:10 10:10 WBC RBC Hgb Hct MCV MCH MCHC RDW Plt Count MPV Neutrophils % Lymphocytes % Monocytes % Eosinophils % Basophils % Anisocytosis Macrocytosis Sodium 138 Potassium 4.5 Chloride 106 Carbon Dioxide 26 Anion Gap 6 L BUN 12 Creatinine 0.6 Random Glucose 135 H Calcium 7.5 L Iron TIBC Iron Saturation Total Bilirubin 5.8 H Direct Bilirubin 4.7 H AST 181 H ALT 226 H Alkaline Phosphatase 641 H LD Total 514 H C-Reactive Protein 1.6 H Total Protein 7.2 Albumin 1.9 L Serum Folate 15 Active Medications Generic Name Dose Route Start Last Admin Trade Name Freq PRN Reason Stop Dose Admin Alprazolam 0.5 mg 05/26/17 09:30 Xanax - PO 05/26/17 09:31 ONCE ONE Dextrose/Sodium Chloride 1,000 mls @ 42 mls/hr 05/25/17 21:45 05/25/17 22:22 D5-1/2ns - IV 42 mls/hr ASDIR JANE Administration ASSESSMENt: Cholestatic liver dysfunction Possibilities in the differential include: * Obstructive process however initial imaging failed to show dilated bile ducts. * No standing medication as cause of DILI * Possible Autoimmune hepatitis/overlap syndrome Heart Murmur: * Unclear if previously evaluated. Plan: Awaiting MRI/MRCP Hepatitis serologies Pending Monitor liver chemistries Avoid hepatotoxic agent. (tylenol discontinued) Work up of heart murmur per PMD. ATTENDING PHYSICIAN STATEMENT I saw and evaluated the patient. I reviewed the resident's note and discussed the case with the resident. I agree with the resident's findings and plan as documented. SUBJECTIVE: No acute events denies abdominal pain OBJECTIVE: + icterus. No oral ulcerations Hrt: RRR + 2/6 CASIE at RSB Lungs: CTA B/L Abd: No scars, non-distended, + normoactive BS, Non-tender, no HSM Ext: No LE edema Neuro: Alert, awake Labs: As above Also Hepatitis serologies unrevealing (including hep A IgM) ASSESSMENT Cholestatic liver dysfunction as described above ? obstructive process / Infectious or Neoplastic diz PLAN: Awaiting MRI/MRCP Discussed possibility of ERCP depending on results. Discussed potential risks of the procedure like but not limited to bleeding, perforation requiring surgery to repair, infection, sedation medication effects and pancreatitis all of which could be potentially life threatening. She has agreed to the procedure if necessary. Monitor LFTs Avoid hepatotoxic agents Alice Moon DO Problem List - Problems (1) Jaundice Assessment/Plan: Given lab values possible cholestatic vs mixed vs neoplasm. * No obstruction seen on US ; Await MRCP this afternoon. * Hgb has been stable for past 48 hrs. ; 8.2 * LFT's are trending down - Hepatitis serology pending * Possible hemolysis given high retic count. LDH elevated and haptoglobin pending. * Tumor markers sent and pending. (2) Macrocytic anemia Assessment/Plan: Possible B12/folate deficiency vs. myelodysplastic disorder. * B12 and folate pending * IgG , cold agglutinins, and CJ pending. * Hematology consult * repeat CBC in AM (3) Abdominal pain (4) Anorexia (5) Elevated LFTs (6) Elevated bilirubin (7) Weight loss Visit type - Emergency Visit Emergency Visit: Yes ED Registration Date: 05/24/17 Care time: The patient presented to the Emergency Department on the above date and was hospitalized for further evaluation of their emergent condition. - New Patient This patient is new to me today: Yes Date on this admission: 05/26/17 - Critical Care Critical Care patient: No
[2017-05-26 14:11] LABS: HBSAG SCREEN Negative (Negative); HEP A AB, IGM Negative (Negative); HEP B CORE AB, TOT Negative (Negative)
--- NOTE | 2017-05-26 16:36 | PN ---
Progress Note (short form) - Note Progress Note: PAtient seen and examined 82-year-old female with no past medical history was sent to ER by me for evaluation of elevated bilirubin, jaundice, and generalized weakness over the past week. Patient has no other complaints at this time including chest pain, shortness of breath, fever, change in bowel pattern, change in urine pattern, increased bruising, or abdominal pain. History Source: Patient, Family Member, Medical Record - Past Medical History Heme/Onc: Yes: Anemia - Smoking History Smoking history: Never smoked - Social History Usual Living Arrangement: Yes: Alone Home Medications - Allergies Allergies/Adverse Reactions: Allergies Allergy/AdvReac Type Severity Reaction Status Date / Time No Known Allergies Allergy Verified 05/24/17 09:43 - Home Medications Home Medications: Ambulatory Orders NK [No Known Home Medication] 05/24/17 Active Medications Generic Name Dose Route Start Last Admin Trade Name Freq PRN Reason Stop Dose Admin Dextrose/Sodium Chloride 1,000 mls @ 42 mls/hr 05/25/17 21:45 05/27/17 06:15 D5-1/2ns - IV 42 mls/hr ASDIR JANE Administration Family Disease History - Family Disease History Family History: Unremarkable Physical Examination Vital Signs: Last Vital Signs Temp Pulse Resp BP Pulse Ox 98.2 F 77 20 113/60 100 05/26/17 16:45 05/26/17 16:45 05/26/17 16:45 05/26/17 16:45 05/26/17 09:00 Cor: RSR, No murmurs, No gallops Lungs: Clear to P&A Abd: Soft, Normal bowel sounds, No organomegaly Ext:No significant edema Abnormal Lab Results 05/25/17 05/26/17 05/26/17 06:00 06:30 06:30 RBC 2.24 L Hgb 8.2 L Hct 25.1 L MCV 112.3 H MCH 36.8 H RDW 20.6 H Basophils % 2.2 H Anion Gap 6 L Random Glucose 135 H Calcium 7.5 L Iron 163 H TIBC 205 L Iron Saturation 80 H Total Bilirubin 5.8 H Direct Bilirubin 4.7 H AST 181 H ALT 226 H Alkaline Phosphatase 641 H LD Total 514 H C-Reactive Protein Albumin 1.9 L Vitamin B12 Hepatitis A Ab Total Positive H 01/29/18 01/29/18 10:10 10:10 RBC Hgb Hct MCV MCH RDW Basophils % Anion Gap Random Glucose Calcium Iron TIBC Iron Saturation Total Bilirubin Direct Bilirubin AST ALT Alkaline Phosphatase LD Total C-Reactive Protein 1.6 H Albumin Vitamin B12 2735 H Hepatitis A Ab Total A/P 82 y/o patient with painless jaundice/hyperbilirubinema to follow up MRI/MRCP Macrocytic anemia-- ?? ongoing cholestasis B12 normal check TSH, fT4, SPEP/UPEP, red cell folate check flow/cytogenetics/FISH elevated retic count--suspect adequate response to anemia but given elevated LDH and low haptoglobin would r/o hemolysis Elevated LDH/mild low hapto--suspect lowgrade hemolysis from liver disease check raul/cold agglutinins monitor CBC will follow
[2017-05-26] MEDS ORDERED: ALPRAZolam 0.25 MG TABLET PO ONE (18:30)
[2017-05-27] MEDS: DEXTROSE 5%-0.45% SALINE 1,000 ML IV SCH (06:15)
[2017-05-27 08:09] LABS: HEMOGLOBIN 7.2 GM/dL (10.7-15.3); MCH 37.2 pg (25.7-33.7); MCHC 32.9 g/dl (32.0-36.0); MEAN CELL VOLUME 113.3 fl (80-96); MEAN PLT VOLUME 7.7 fl (7.5-11.1); PLATELET COUNT 162 K/MM3 (134-434); RBC 1.94 M/mm3 (3.60-5.2); RDW 21.3 % (11.6-15.6); WHITE BLOOD COUNT 7.9 K/mm3 (4.0-10.0)
[2017-05-27 08:13] LABS: ALBUMIN 1.9 g/dl (3.4-5.0); ANION GAP 7 (8-16); BILIRUBIN,TOTAL 3.8 mg/dL (0.2-1.0); BLOOD UREA NITROGEN 10 mg/dL (7-18); CHLORIDE 107 mmol/L (98-107); CO2 25 mmol/L (21-32); CREATININE 0.5 mg/dL (0.55-1.02); GLUCOSE,RANDOM 83 mg/dL (74-106); POTASSIUM 3.2 mmol/L (3.5-5.1); SGOT/AST 104 U/L (15-37); SGPT/ALT 157 U/L (12-78); SODIUM 139 mmol/L (136-145); TOT PROT 6.5 g/dl (6.4-8.2)
[2017-05-27 08:16] LABS: BILIRUBIN,DIRECT 3.2 mg/dL (0.0-0.2)
[2017-05-27 08:21] LABS: ALK PHOS 483 U/L (45-117)
[2017-05-27 08:39] LABS: ADD RBC MORPHOLOGY YES
--- NOTE | 2017-05-27 10:47 | PN ---
Progress Note (short form) - Note Progress Note: Pt seen and examined. O/E: general : in No acute distress HEENT: NCAT, +scleral icterus Cor: RRR Lungs: CTA b/l Extremities: No CCE Neuro: AAOX3 Last Vital Signs Temp Pulse Resp BP Pulse Ox 98.6 F 82 20 127/60 98 05/27/17 10:00 05/27/17 10:00 05/27/17 10:00 05/27/17 10:00 05/26/17 21:00 CBC, BMP 05/27/17 06:30 05/27/17 06:30 INR, PTT INR 1.33 (0.82-1.09) H 05/25/17 06:00 Current Medications Generic Name Dose Route Start Last Admin Trade Name Freq PRN Reason Stop Dose Admin Dextrose/Sodium Chloride 1,000 mls @ 42 mls/hr 05/25/17 21:45 05/27/17 06:15 D5-1/2ns - IV 42 mls/hr ASDIR JANE Administration 82 y/o patient with painless jaundice/hyperbilirubinema. reviewed GI c/s. PAULA positive, but pending further classification. etiology to be known too. d/w blood bank. start folate though etiology unknown/idiopathic, due to the procedure planned and need for prbcs, will order 2U of PRBC. d/w blood bank. requested that request to [facility] send ROB and so that blood would be ready by tonight Vit K as ordered. for GI w/u. will follow closely
--- NOTE | 2017-05-27 11:39 | PN ---
Progress Note (short form) - Note Progress Note: GI NOTE: Given patients drop in hematocrit and elevated INR, ERCP will be deferred until the morning. I and Dr. Bansal discussed the case with Dr. Gross, who identified several filling defects in the common bile duct. Dr. Bansal discussed case with who will be ordering PRBC given positive gracia. Will administer Vit K to correct coagulopathy in anticipation of ERCP in AM. Fortunately the jaundice in slowly resolving. <Kei Wong - Last Filed: 05/27/17 11:36> - Note Progress Note: Case discussed with Dr Wong. Please see my subsequent progress note. <Vinicio Bansal - Last Filed: 05/27/17 16:49> Problem List - Problems (1) Jaundice (2) Macrocytic anemia (3) Abdominal pain (4) Anorexia (5) Elevated LFTs (6) Elevated bilirubin (7) Weight loss <Kei Wong - Last Filed: 05/27/17 11:36> - Problems (1) Jaundice Code(s): R17 - UNSPECIFIED JAUNDICE (2) Abdominal pain Code(s): R10.9 - UNSPECIFIED ABDOMINAL PAIN Qualifiers: Abdominal location: generalized Qualified Code(s): R10.84 - Generalized abdominal pain (3) Weight loss Code(s): R63.4 - ABNORMAL WEIGHT LOSS (4) Anorexia Code(s): R63.0 - ANOREXIA (5) Weakness Code(s): R53.1 - WEAKNESS <Vinicio Bansal - Last Filed: 05/27/17 16:49>
[2017-05-27] MEDS ORDERED: PHYTONADIONE 10 MG/1 ML AMP IVPB ONE (12:00)
--- NOTE | 2017-05-27 12:09 | PN ---
Progress Note (short form) - Note Progress Note: Feels a little better today. Appears less jaundiced. No CP or SOB. Minimal fullness felt today. No N/V. Intake & Output 05/24/17 05/25/17 05/26/17 05/27/17 23:59 23:59 23:59 23:59 Intake Total 300 1404 294 Balance 300 1404 294 Weight 121 lb Last Vital Signs Temp Pulse Resp BP Pulse Ox 98.6 F 82 20 127/60 99 05/27/17 10:00 05/27/17 10:00 05/27/17 10:00 05/27/17 10:00 05/27/17 09:00 Active Medications Folic Acid (Folic Acid -) 1 mg PO DAILY JANE Dextrose/Sodium Chloride (D5-1/2ns -) 1,000 mls @ 42 mls/hr IV ASDIR JANE Last Admin: 05/27/17 06:15 Dose: 42 mls/hr Constitutional: Yes: Well Nourished, mildly anxious Eyes: Yes: Less Sclera Icterus HENT: Yes: Atraumatic Neck: Yes: Supple Cardiovascular: Yes: Regular Rate and Rhythm Respiratory: Yes: CTA Bilaterally Gastrointestinal Inspection: Yes: Other (no scars) ...Palpate: Yes: Soft, Other (nontender, no masses) Labs: Laboratory Results - last 24 hr 05/25/17 05/26/17 05/26/17 06:00 06:30 10:10 WBC RBC Hgb Hct MCV MCH MCHC RDW Plt Count MPV ESR Haptoglobin 32 L Sodium Potassium Chloride Carbon Dioxide Anion Gap BUN Creatinine Creat Clearance w eGFR Random Glucose Calcium Total Bilirubin Direct Bilirubin AST ALT Alkaline Phosphatase LD Total C-Reactive Protein Total Protein Albumin Tumor Marker AFP 3.5 CA 19-9 Antigen 36 H Vitamin B12 2735 H TSH Free T4 IgG4 383 H CJ Screen Negative Hep A IgM Ab Confirm Negative Hepatitis A Ab Total Positive H Hep Bs Antigen Negative Hep Bs Antibody Non reactive Hep B Core Total Ab Negative Hepatitis C Antibody 0.1 Blood Type Direct Antiglob Test Crossmatch 05/27/17 05/27/17 05/27/17 06:30 06:30 06:30 WBC 7.9 RBC 1.94 L Hgb 7.2 L D Hct 22.0 L MCV 113.3 H MCH 37.2 H MCHC 32.9 RDW 21.3 H Plt Count 162 MPV 7.7 ESR 111 H Haptoglobin Sodium 139 Potassium 3.2 L Chloride 107 Carbon Dioxide 25 Anion Gap 7 L BUN 10 Creatinine 0.5 L Creat Clearance w eGFR > 60 Random Glucose 83 Calcium 7.0 L Total Bilirubin 3.8 H D Direct Bilirubin AST 104 H ALT 157 H Alkaline Phosphatase 483 H LD Total C-Reactive Protein Total Protein 6.5 Albumin 1.9 L Tumor Marker AFP CA 19-9 Antigen Vitamin B12 TSH 3.05 Free T4 IgG4 CJ Screen Hep A IgM Ab Confirm Hepatitis A Ab Total Hep Bs Antigen Hep Bs Antibody Hep B Core Total Ab Hepatitis C Antibody Blood Type Direct Antiglob Test Crossmatch 05/27/17 05/27/17 05/27/17 06:30 06:30 06:30 WBC RBC Hgb Hct MCV MCH MCHC RDW Plt Count MPV ESR Haptoglobin Sodium Potassium Chloride Carbon Dioxide Anion Gap BUN Creatinine Creat Clearance w eGFR Random Glucose Calcium Total Bilirubin Direct Bilirubin 3.2 H AST ALT Alkaline Phosphatase LD Total 342 H C-Reactive Protein 1.2 H Total Protein Albumin Tumor Marker AFP CA 19-9 Antigen Vitamin B12 TSH Free T4 1.25 IgG4 CJ Screen Hep A IgM Ab Confirm Hepatitis A Ab Total Hep Bs Antigen Hep Bs Antibody Hep B Core Total Ab Hepatitis C Antibody Blood Type O POSITIVE Direct Antiglob Test Positive H Crossmatch See Detail Problem List - Problems (1) Jaundice Code(s): R17 - UNSPECIFIED JAUNDICE (2) Elevated bilirubin Code(s): R17 - UNSPECIFIED JAUNDICE (3) Weakness Code(s): R53.1 - WEAKNESS (4) Anorexia Code(s): R63.0 - ANOREXIA (5) Weight loss Code(s): R63.4 - ABNORMAL WEIGHT LOSS PLAN: ERCP planned for the AM For pRBCs today O2 as needed Replace lytes NPO after midnight SCDs Follow AM labs Dr Cornejo
[2017-05-27] MEDS ORDERED: POTASSIUM CHLORIDE TABS 20 MEQ TABLET.ER (FP) PO ONE ×2 (12:30→18:00)
[2017-05-27] MEDS ORDERED: PT OWN MED DRAWER 7, Y5N ONE (12:42)
[2017-05-27] MEDS: FOLIC ACID 1 MG TABLET (FP) PO SCH (12:47)
--- NOTE | 2017-05-27 13:02 | PN ---
Progress Note (short form) - Note Progress Note: no further fevers feels "full" no abdominal pain or back pain Vital Signs Period Temp Pulse Resp BP Sys/Morales Pulse Ox Last 24 Hr 97.8 F-98.6 F 52-84 18-20 108-127/54-68 98-99 cor-rrr lungs clear abd soft,nt ext no edema CBC, BMP 05/27/17 06:30 05/27/17 06:30 MRCP results pending Microbiology 05/25/17 20:40 Urine - Urine Clean Catch Urine Culture - Final Contaminated: Please Repeat 05/25/17 21:45 Blood - Peripheral Venous Blood Culture - Preliminary NO GROWTH OBTAINED AFTER 24 HOURS, INCUBATION TO CONTINUE FOR 4 DAYS. 05/25/17 21:50 Blood - Peripheral Venous Blood Culture - Preliminary NO GROWTH OBTAINED AFTER 24 HOURS, INCUBATION TO CONTINUE FOR 4 DAYS. a/p anemia abnl LFTS if fever recurs start zosyn awaiting MRCP results ?ERCP in am will d/w GI
[2017-05-27] MEDS ORDERED: PIPERACILLIN/TAZOB 4.5 GM/100 ML PRE-DOCKED IVPB SCH (15:45)
--- NOTE | 2017-05-27 16:41 | PN ---
GI Progress Note Subjective: GI NOte: MRCP was discussed with Dr Cohen this AM. He finds multiple small filling defects and perhaps cholecystitis but no gallbladder stones. Discussed case with Dr Burnett and Zosyn has been started. Her Hct has dropped to 22 and she is Rosemarie positive. Discussed with Dr Abel who is arranging blood transfusion. I have discussed the need to proceed with ERCp and sphincterotomy to remove these stones. I have discussed the risks of perforation, hemorrhage and ERCP induced pancreaititis leading to pain, vomiting and multiorgan failure including kidney and lung injury. She has signed an informed consent. - Objective Vital Signs: Vital Signs Temperature 98.2 F 05/27/17 14:54 Pulse Rate 90 05/27/17 14:54 Respiratory Rate 18 05/27/17 14:54 Blood Pressure 110/66 05/27/17 14:54 O2 Sat by Pulse Oximetry (%) 99 05/27/17 09:00 Laboratory Tests 05/24/17 05/24/17 05/25/17 10:26 10:26 06:00 Hct 27.7 L D Plt Count Retic Count 11.56 H* PT with INR INR Total Bilirubin 8.8 H D ALT 306 H LD Total C-Reactive Protein 05/25/17 05/26/17 05/27/17 06:00 06:30 06:30 Hct 22.0 L Plt Count 162 Retic Count PT with INR 15.00 H INR 1.33 H Total Bilirubin ALT LD Total 514 H C-Reactive Protein 05/27/17 05/27/17 05/27/17 06:30 06:30 06:30 Hct Plt Count Retic Count PT with INR INR Total Bilirubin 3.8 H D ALT 157 H LD Total 342 H C-Reactive Protein 1.2 H Laboratory Tests 05/25/17 06:00 IgG4 383 H CJ Screen Negative Hep A IgM Ab Confirm Negative Hepatitis A Ab Total Positive H Hep Bs Antigen Negative Hep Bs Antibody Non reactive Hep B Core Total Ab Negative Hepatitis C Antibody 0.1 Constitutional: Anxious Eyes: Yes: Sclera Icterus ...Auscultate: Yes: Normoactive Bowel Sounds ...Palpate: Yes: Soft, Other (nontender) Labs: CBC, BMP 05/27/17 06:30 05/27/17 06:30 INR, PTT INR 1.33 (0.82-1.09) H 05/25/17 06:00 Assessment/Plan Vit K to normalize INR Transfuse to Hb 8 Zosyn started to protect against cholangitis ERCP in AM Problem List - Problems (1) Jaundice Assessment/Plan: Jaundice due to CBD stones and to hemolysis. I have made arrangements to do ERCP in AM to extract the stones if her condition permits Code(s): R17 - UNSPECIFIED JAUNDICE (2) Abdominal pain Code(s): R10.9 - UNSPECIFIED ABDOMINAL PAIN Qualifiers: Abdominal location: generalized Qualified Code(s): R10.84 - Generalized abdominal pain (3) Weight loss Code(s): R63.4 - ABNORMAL WEIGHT LOSS (4) Anorexia Code(s): R63.0 - ANOREXIA (5) Weakness Code(s): R53.1 - WEAKNESS
[2017-05-27] MEDS: PIPERACILLIN/TAZOB 4.5 GM 4.5 GM in DEXTROSE 5%-WATER - 100 ML IVPB SCH (17:34)
--- NOTE | 2017-05-27 19:21 | PN ---
Progress Note (short form) - Note Progress Note: again discussed with blood bank about the PRBCs, not received from [facility] yet...
[2017-05-28] MEDS: PIPERACILLIN/TAZOB 4.5 GM 4.5 GM in DEXTROSE 5%-WATER - 100 ML IVPB SCH ×4 (01:34→19:02)
[2017-05-28] MEDS: DEXTROSE 5%-0.45% SALINE 1,000 ML IV SCH (01:36)
[2017-05-28 06:45] LABS: BASO % 1.1 % (0-2.0); EOS % 14.7 % (0-4.5); HEMATOCRIT 22.4 % (32.4-45.2); HEMOGLOBIN 7.4 GM/dL (10.7-15.3); LYMPH % 20.5 % (8-40); MCHC 33.1 g/dl (32.0-36.0); MEAN CELL VOLUME 111.8 fl (80-96); MEAN PLT VOLUME 7.7 fl (7.5-11.1); MONO % 10.4 % (3.8-10.2); NEUT % 53.3 % (42.8-82.8); PLATELET COUNT 155 K/MM3 (134-434); RDW 20.3 % (11.6-15.6); WHITE BLOOD COUNT 7.4 K/mm3 (4.0-10.0)
[2017-05-28 06:59] LABS: INR 1.23 (0.82-1.09); PROTHROMBIN TIME (PATIENT) 13.9 SEC (9.98-11.88)
[2017-05-28 07:37] LABS: ALBUMIN 1.8 g/dl (3.4-5.0); ANION GAP 8 (8-16); BILIRUBIN,DIRECT 3.1 mg/dL (0.0-0.2); BLOOD UREA NITROGEN 9 mg/dL (7-18); CALCIUM 7.6 mg/dL (8.5-10.1); CHLORIDE 105 mmol/L (98-107); CO2 24 mmol/L (21-32); CREATININE 0.6 mg/dL (0.55-1.02); GLUCOSE,RANDOM 83 mg/dL (74-106); POTASSIUM 4.5 mmol/L (3.5-5.1); SGOT/AST 141 U/L (15-37); SGPT/ALT 154 U/L (12-78); SODIUM 137 mmol/L (136-145)
[2017-05-28 07:38] LABS: ALK PHOS 531 U/L (45-117); BILIRUBIN,TOTAL 3.9 mg/dL (0.2-1.0); TOT PROT 6.6 g/dl (6.4-8.2)
[2017-05-28] MEDS ORDERED: ACETAMINOPHEN 325 MG TABLET (FP) PO ONE (09:01)
--- NOTE | 2017-05-28 09:07 | PN ---
Progress Note (short form) - Note Progress Note: Patient seen and examined. Events reviewed. d/w Blood bank she says she feels better. denies any complains and also feels that her urine is becoming to a normal color. O/E: general : in No acute distress HEENT: NCAT, mild scleral icterus Cor: RRR Lungs: CTA b/l Extremities: No CCE Neuro: AAOX3 Last Vital Signs Temp Pulse Resp BP Pulse Ox 98.2 F 81 20 120/69 99 05/28/17 06:00 05/28/17 06:00 05/28/17 06:00 05/28/17 06:00 05/27/17 21:00 CBC, BMP 05/28/17 05:35 05/28/17 05:35 Current Medications Generic Name Dose Route Start Last Admin Trade Name Freq PRN Reason Stop Dose Admin Folic Acid 1 mg 05/27/17 12:00 05/27/17 12:47 Folic Acid - PO 1 mg DAILY JANE Administration Dextrose/Sodium Chloride 1,000 mls @ 42 mls/hr 05/25/17 21:45 05/28/17 01:36 D5-1/2ns - IV Not Given ASDIR JANE Piperacillin Sod/Tazobactam 100 mls @ 200 mls/hr 05/27/17 16:30 05/28/17 01: 34 Sod 4.5 gm/ Dextrose IVPB 200 mls/hr Q8H-IV JANE Administration Methylprednisolone Sodium Succinate 55 mg 05/28/17 09:05 Solu-Medrol - IVPB 05/28/17 09:06 ONCE ONE Warm and Cold AIHA. etiology ?idiopathic able to get blood from [facility] early am . CBC- first unit now Prior to one unit PRBC: Tylenol/Benadryl/Methylpred ( steroids given as 1mg/kg) . then PRBC with blood warmer Post PRBC: repeat CBC c/w folate. discussed with pt/RN in detail. d/w GI.
[2017-05-28] MEDS ORDERED: methylPREDNISolone NA SUCC 125 MG/2 ML VIAL IVPUSH ONE (09:40)
[2017-05-28] MEDS ORDERED: ROCURONIUM BROMIDE 50 MG/5 ML VIAL ONE (11:26)
[2017-05-28] MEDS ORDERED: NEOSTIGMINE METHYLSULFATE 0.5 MG/ML - 10 ML MDV ONE (11:27)
[2017-05-28] MEDS ORDERED: GLYCOPYRROLATE 0.2 MG/1 ML VIAL ONE ×3 (11:27)
[2017-05-28] MEDS ORDERED: PROPOFOL 20 ML ONE (11:27)
[2017-05-28] MEDS ORDERED: ONDANSETRON 4 MG/2 ML VIAL ONE (11:28)
[2017-05-28] MEDS ORDERED: DEXAMETHASONE SOD PHOSPHATE 10 MG/1 ML VIAL ONE (11:28)
[2017-05-28] MEDS ORDERED: IOHEXOL 300 MG/ML INFUS..BTL IV ONE (12:07)
--- NOTE | 2017-05-28 12:37 | PN ---
Progress Note (short form) - Note Progress Note: GI Procedure Note: Please see scanned ERCP report. A normal common bile duct, intrahepatic biliary tree and cystic duct were found but given the persistent jaundice and abnormal ERCP, a sphincterotomy was made and a balloon sweep undertaken which yielded only silt and stone debris. There was no impingement to suggest a pancreatic tumor. Need to watch for pancreatitis. I appreciate Dr Terry's efforts in procuring blood in time to allow for the procedure. Problem List - Problems (1) Jaundice Code(s): R17 - UNSPECIFIED JAUNDICE (2) Abdominal pain Code(s): R10.9 - UNSPECIFIED ABDOMINAL PAIN Qualifiers: Abdominal location: generalized Qualified Code(s): R10.84 - Generalized abdominal pain (3) Weight loss Code(s): R63.4 - ABNORMAL WEIGHT LOSS (4) Anorexia Code(s): R63.0 - ANOREXIA (5) Weakness Code(s): R53.1 - WEAKNESS
[2017-05-28] MEDS ORDERED: LACTATED RINGERS SOLUTION 1,000 ML/1,000 ML INFUS.BAG IV SCH ×2 (12:45→19:00)
[2017-05-28] MEDS ORDERED: PT OWN MED DRAWER 7, Y5N ONE ×2 (14:28→18:43)
[2017-05-28] MEDS: FOLIC ACID 1 MG TABLET (FP) PO SCH ×2 (14:33→14:35)
[2017-05-28 15:30] LABS: HEMATOCRIT 27.7 % (32.4-45.2); HEMOGLOBIN 9.3 GM/dL (10.7-15.3); MCH 35.9 pg (25.7-33.7); MCHC 33.7 g/dl (32.0-36.0); MEAN CELL VOLUME 106.7 fl (80-96); MEAN PLT VOLUME 8.3 fl (7.5-11.1); PLATELET COUNT 166 K/MM3 (134-434); RBC 2.59 M/mm3 (3.60-5.2); RDW 23.3 % (11.6-15.6); WHITE BLOOD COUNT 6.5 K/mm3 (4.0-10.0)
--- NOTE | 2017-05-28 16:07 | PATH ---
Surgical Pathology Report Patient Name: RICO GARNETT [facility]. Rec. #: [id number] /Age/Gender: 1935 (Age: 82) / F Account: [id number] Location: [facility] MED/SURG Taken: 05/27/2017 Received: 05/27/2017 Reported: 05/28/2017 Physicians: Radha Terry M.D. Specimen(s) Received PERIPHERAL BLOOD 4 GREEN TOPS Clinical History New onset hemolysis Final Diagnosis COMPREHENSIVE FLOW PANEL performed and interpreted at [facility] laboratory, [place], [place] ([id number]) shows the following: INTERPRETATION: There is no evidence of B or T-cell proliferative disorders or increased blasts. Mild polytypic plasmacytosis, see comment. COMMENT: The findings are non-specific; they could be associated with autoimmune or infectious processes. Correlation with complete bone marrow evaluation (including flow cytometry immunophenotyping and cytogenetic studies) is suggested in order to assess for myelodysplasia See Emerge report ([id number]) for additional details. Electronically Signed Vivian Sena M.D. Addendum Reported: 06/10/2017 Addendum Diagnosis CYTOGENETIC KARYOTYPE ANALYSIS performed and interpreted at [facility] ([id number]) shows the following: RESULTS: 46,XX [5] INTERPRETATION: Normal Karyotype See Emerge report for additional details ([id number]) Vivian Sena M.D. Gross Description Received are 4 green top tubes of peripheral blood which are sent to [facility]. /05/27/2017 saudi/05/27/2017
[2017-05-29] MEDS: PIPERACILLIN/TAZOB 4.5 GM 4.5 GM in DEXTROSE 5%-WATER - 100 ML IVPB SCH (02:14)
[2017-05-29] MEDS: LACTATED RINGERS SOLUTION 1,000 ML/1,000 ML INFUS.BAG IV SCH ×4 (02:14→18:31)
--- NOTE | 2017-05-29 06:47 | PN ---
Progress Note, Physician Chief Complaint: ID Preceeding notes reviewed regarding ERCP yesterday and blood transfusion She has remained asymptomatic with the exception of 1 fever 2 days ago. Denies abd pain She is currently on Zosyn - Current Medication List Current Medications: Active Medications Folic Acid (Folic Acid -) 1 mg PO DAILY [facility] Last Admin: 05/28/17 14:35 Dose: 1 mg Piperacillin Sod/Tazobactam (Sod 4.5 gm/ Dextrose) 100 mls @ 200 mls/hr IVPB Q8H-IV JANE Last Admin: 05/29/17 02:14 Dose: 200 mls/hr Lactated Ringer's (Lactated Ringers Solution) 1,000 ml in 1,000 mls @ 125 mls/ hr IV ASDIR JANE Last Admin: 05/29/17 02:15 Dose: Not Given - Objective Vital Signs: Vital Signs Temperature 97.7 F 05/29/17 02:19 Pulse Rate 58 L 05/29/17 02:19 Respiratory Rate 20 05/29/17 02:19 Blood Pressure 122/58 05/29/17 02:19 O2 Sat by Pulse Oximetry (%) 96 05/28/17 22:00 Constitutional: Yes: Well Nourished, No Distress HENT: Yes: WNL, Atraumatic Neck: Yes: WNL, Supple Cardiovascular: Yes: S1, S2 Respiratory: Yes: WNL, Regular, CTA Bilaterally Gastrointestinal: Yes: WNL, Normal Bowel Sounds, Soft. No: Tenderness, Tenderness, Rebound Edema: No Labs: CBC, BMP 05/28/17 14:50 05/28/17 05:35 INR, PTT INR 1.23 (0.82-1.09) H 05/28/17 05:35 Problem List - Problems (1) Fever, unknown origin Code(s): R50.9 - FEVER, UNSPECIFIED (2) Elevated LFTs Code(s): R79.89 - OTHER SPECIFIED ABNORMAL FINDINGS OF BLOOD CHEMISTRY (3) Jaundice Code(s): R17 - UNSPECIFIED JAUNDICE (4) Hemolysis Code(s): TCS6838 - Assessment/Plan Microbiology 05/25/17 20:40 Urine - Urine Clean Catch Urine Culture - Final Contaminated: Please Repeat 05/25/17 21:50 Blood - Peripheral Venous Blood Culture - Preliminary NO GROWTH OBTAINED AFTER 72 HOURS, INCUBATION TO CONTINUE FOR 2 DAYS. 05/25/17 21:45 Blood - Peripheral Venous Blood Culture - Preliminary NO GROWTH OBTAINED AFTER 72 HOURS, INCUBATION TO CONTINUE FOR 2 DAYS. Laboratory Tests 05/28/17 05/28/17 05:35 14:50 WBC 6.5 Hgb 9.3 L D Hct 27.7 L D Plt Count 166 Total Bilirubin 3.9 H AST 141 H Alkaline Phosphatase 531 H Assessment Post ERCP Jaundice Isolated fever resolved quickly neg cultures Hemolytic anemia Plan At this time I see no reason to continue antibiotic unless fever recurs Will stop Pip Tazobactam Kindly recall as needed Kenyon CANDELARIO
[2017-05-29 07:49] LABS: ANION GAP 7 (8-16); CHLORIDE 105 mmol/L (98-107); CO2 27 mmol/L (21-32); LIPASE 89 U/L (73-393); POTASSIUM 4.4 mmol/L (3.5-5.1); SGOT/AST 65 U/L (15-37); SGPT/ALT 116 U/L (12-78); SODIUM 139 mmol/L (136-145)
[2017-05-29 07:56] LABS: ALBUMIN 1.7 g/dl (3.4-5.0); ALK PHOS 414 U/L (45-117); AMYLASE 26 U/L (25-115); BILIRUBIN,DIRECT 2.6 mg/dL (0.0-0.2); BILIRUBIN,TOTAL 3.2 mg/dL (0.2-1.0); BLOOD UREA NITROGEN 14 mg/dL (7-18); CALCIUM 7.7 mg/dL (8.5-10.1); CREATININE 0.6 mg/dL (0.55-1.02); GLUCOSE,RANDOM 76 mg/dL (74-106); TOT PROT 6.2 g/dl (6.4-8.2)
[2017-05-29 08:40] LABS: INR 1.24 (0.82-1.09)
--- NOTE | 2017-05-29 09:39 | PN ---
Progress Note (short form) - Note Progress Note: Reports a little sore throat from the procedure, but otherwise feels well. No CP or SOB. No abdominal pain/discomfort. Intake & Output 05/26/17 05/27/17 05/28/17 05/29/17 23:59 23:59 23:59 23:59 Intake Total 1404 1456 2417 750 Output Total 300 Balance 1404 1456 2417 450 Last Vital Signs Temp Pulse Resp BP Pulse Ox 98.1 F 62 20 104/48 96 05/29/17 07:01 05/29/17 07:01 05/29/17 07:01 05/29/17 07:01 05/28/17 22:00 Active Medications Folic Acid (Folic Acid -) 1 mg PO DAILY [facility] Last Admin: 05/28/17 14:35 Dose: 1 mg Lactated Ringer's (Lactated Ringers Solution) 1,000 ml in 1,000 mls @ 125 mls/ hr IV ASDIR [facility] Last Admin: 05/29/17 02:15 Dose: Not Given Constitutional: Yes: Awake and alert, NAD Eyes: Yes: Less Sclera Icterus HENT: Yes: Atraumatic Neck: Yes: Supple Cardiovascular: Yes: Regular Rate and Rhythm Respiratory: Yes: CTA Bilaterally Gastrointestinal Inspection: Yes: Other (no scars) ...Palpate: Yes: Soft, Other (nontender, no masses) Labs: Laboratory Results - last 24 hr 05/26/17 05/27/17 05/28/17 10:10 06:30 14:50 WBC 6.5 RBC 2.59 L D Hgb 9.3 L D Hct 27.7 L D MCV 106.7 H MCH 35.9 H MCHC 33.7 RDW 23.3 H D Plt Count 166 MPV 8.3 PT with INR INR Sodium Potassium Chloride Carbon Dioxide Anion Gap BUN Creatinine Random Glucose Calcium Total Bilirubin Direct Bilirubin AST ALT Alkaline Phosphatase C-Reactive Protein Total Protein Albumin Kcghr-0-Iavjnurgs (%) Cancelled Lcgmz-1-Lecfrpoew (%) Cancelled Beta Globulins (%) Cancelled Gamma Globulins (%) Cancelled M-Davidson % Cancelled Total Amylase Lipase Cold Agglutinins Negative Ref Test Comments Cancelled 05/29/17 05/29/17 06:15 06:15 WBC RBC Hgb Hct MCV MCH MCHC RDW Plt Count MPV PT with INR 14.00 H INR 1.24 H Sodium 139 Potassium 4.4 Chloride 105 Carbon Dioxide 27 Anion Gap 7 L BUN 14 Creatinine 0.6 Random Glucose 76 Calcium 7.7 L Total Bilirubin 3.2 H Direct Bilirubin 2.6 H AST 65 H ALT 116 H Alkaline Phosphatase 414 H C-Reactive Protein 1.1 H Total Protein 6.2 L Albumin 1.7 L Btntc-7-Aowmcsrrh (%) Dnykc-5-Rpyxmoful (%) Beta Globulins (%) Gamma Globulins (%) M-Davidson % Total Amylase 26 Lipase 89 Cold Agglutinins Ref Test Comments Problem List - Problems (1) Jaundice Code(s): R17 - UNSPECIFIED JAUNDICE (2) Elevated bilirubin Code(s): R17 - UNSPECIFIED JAUNDICE (3) Weakness Code(s): R53.1 - WEAKNESS (4) Anorexia Code(s): R63.0 - ANOREXIA (5) Weight loss Code(s): R63.4 - ABNORMAL WEIGHT LOSS PLAN: Follow CBC PO advance per GI O2 as needed SCDs OOB to chair Dr Cornejo
[2017-05-29] MEDS: FOLIC ACID 1 MG TABLET (FP) PO SCH (09:56)
[2017-05-29 10:04] LABS: BASO % 0.9 % (0-2.0); EOS % 3.7 % (0-4.5); HEMATOCRIT 27.2 % (32.4-45.2); HEMOGLOBIN 8.7 GM/dL (10.7-15.3); LYMPH % 20.1 % (8-40); MCH 34.8 pg (25.7-33.7); MCHC 31.9 g/dl (32.0-36.0); MEAN PLT VOLUME 8.7 fl (7.5-11.1); MONO % 9.7 % (3.8-10.2); NEUT % 65.6 % (42.8-82.8); PLATELET COUNT 160 K/MM3 (134-434); RDW 24.1 % (11.6-15.6); RETICULOCYTES 7.67 % (0.5-1.5); WHITE BLOOD COUNT 8.6 K/mm3 (4.0-10.0)
--- NOTE | 2017-05-29 11:16 | PN ---
Progress Note (short form) - Note Progress Note: Patient seen and examined. Events reviewed. GI w/u noted she feels a bit tired today O/E: general : in No acute distress HEENT: NCAT, mild scleral icterus Cor: RRR Lungs: CTA b/l Extremities: No CCE Neuro: AAOX3 Last Vital Signs Temp Pulse Resp BP Pulse Ox 98.2 F 81 20 120/69 99 05/28/17 06:00 05/28/17 06:00 05/28/17 06:00 05/28/17 06:00 05/27/17 21:00 CBC, BMP 05/28/17 05:35 05/28/17 05:35 Current Medications Generic Name Dose Route Start Last Admin Trade Name Freq PRN Reason Stop Dose Admin Folic Acid 1 mg 05/27/17 12:00 05/27/17 12:47 Folic Acid - PO 1 mg DAILY JANE Administration Dextrose/Sodium Chloride 1,000 mls @ 42 mls/hr 05/25/17 21:45 05/28/17 01:36 D5-1/2ns - IV Not Given ASDIR JANE Piperacillin Sod/Tazobactam 100 mls @ 200 mls/hr 05/27/17 16:30 05/28/17 01: 34 Sod 4.5 gm/ Dextrose IVPB 200 mls/hr Q8H-IV JANE Administration Methylprednisolone Sodium Succinate 55 mg 05/28/17 09:05 Solu-Medrol - IVPB 05/28/17 09:06 ONCE ONE Warm and Cold AIHA. etiology ?idiopathic CBC stable GI w/u noted daily blood work c/w folate. c/w Prednisone 50mg daily. (changed from methyl pred )
--- NOTE | 2017-05-29 11:44 | PN ---
Progress Note (short form) - Note Progress Note: Post op day#1.S/P ERCP with sphinctrotomy and balloon swaping of CBD under GA uneventful.Patient stable.No any anesthesia related problem.Patient Dc from the anesthesia care.
[2017-05-29] MEDS: predniSONE 20 MG TABLET (UD) PO SCH (13:29)
--- NOTE | 2017-05-29 14:12 | PN ---
Physical Exam: SUBJECTIVE: Patient seen and examined at bedside. POD#1 S/P ERCP. Tolerated the procedure well. No abdominal pain. Some throat soreness. Tolerating liquid diet. Denies CP, ROBERTO, SOB, palpitations, abdominal pain, N/V. OBJECTIVE: Vital Signs Period Temp Pulse Resp BP Sys/Morales Pulse Ox Last 24 Hr 97.4 F-98.2 F 58-78 16-20 92-124/28-58 95-96 GENERAL: AAOx3, NAD HEAD: NC/AT EYES: sclera icterus improved. ENT: moist mucous membranes. NECK: supple, No JVD LUNGS: CTAB, No wheezing, rales or rhonchi. HEART:RRR, NL S1S2, 2/6SEM RSB ABDOMEN: Soft, nontender, nondistended, normoactive bowel sounds, no guarding, no rebound, no hepatosplenomegaly, no masses. EXTREMITIES: 2+ pulses, warm, well-perfused, no edema. NEUROLOGICAL: Normal speech, gait not observed. PSYCH: Normal mood, normal affect. SKIN: Warm, dry, normal turgor, no rashes or lesions noted Laboratory Results - last 24 hr 05/26/1705/27/18 05/28/17 10:10 06:30 14:50 WBC 6.5 RBC 2.59 L D Hgb 9.3 L D Hct 27.7 L D MCV 106.7 H MCH 35.9 H MCHC 33.7 RDW 23.3 H D Plt Count 166 MPV 8.3 Neutrophils % Lymphocytes % Monocytes % Eosinophils % Basophils % Retic Count PT with INR INR Sodium Potassium Chloride Carbon Dioxide Anion Gap BUN Creatinine Random Glucose Calcium Total Bilirubin Direct Bilirubin AST ALT Alkaline Phosphatase C-Reactive Protein Total Protein Albumin Globulin 4.1 H Musun-2-Irmoxchdt (%) Cancelled Snwte-3-Xusalztpi (%) Cancelled Beta Globulins 0.9 Beta Globulins (%) Cancelled Gamma Globulins (%) Cancelled M-Davidson % Cancelled Total Amylase Lipase JUNI & SPEP Interp Total Protein (JUNI) 6.3 Albumin (JUNI) 2.2 L Albumin/Globulin (JUNI) 0.6 L Dozyk-6-Eubtmrnbj JUNI 0.1 Jscit-8-Ttwxrbtqu JUNI 0.5 Gamma Globulins (JUNI) 2.6 H JUNI M-Davidson Not observed JUNI Comments IEP IgG 2491 H IEP IgA 354 IEP IgM 234 H Cold Agglutinins Negative Ref Test Comments Cancelled 05/29/17 05/29/17 05/29/17 06:15 06:15 06:15 WBC 8.6 D RBC 2.50 L Hgb 8.7 L Hct 27.2 L MCV 109.0 H MCH 34.8 H MCHC 31.9 L RDW 24.1 H Plt Count 160 MPV 8.7 Neutrophils % 65.6 D Lymphocytes % 20.1 Monocytes % 9.7 Eosinophils % 3.7 Basophils % 0.9 Retic Count 7.67 H D PT with INR 14.00 H INR 1.24 H Sodium 139 Potassium 4.4 Chloride 105 Carbon Dioxide 27 Anion Gap 7 L BUN 14 Creatinine 0.6 Random Glucose 76 Calcium 7.7 L Total Bilirubin 3.2 H Direct Bilirubin 2.6 H AST 65 H ALT 116 H Alkaline Phosphatase 414 H C-Reactive Protein 1.1 H Total Protein 6.2 L Albumin 1.7 L Globulin Bfiei-7-Lsktitlrx (%) Uzkce-4-Svrfxlqeh (%) Beta Globulins Beta Globulins (%) Gamma Globulins (%) M-Davidson % Total Amylase 26 Lipase 89 JUNI & SPEP Interp Total Protein (JUNI) Albumin (JUNI) Albumin/Globulin (JUNI) Xtqep-6-Pjwcnvydz JUNI Yfwpr-5-Loifyrkil JUNI Gamma Globulins (JUNI) JUNI M-Davidson JUNI Comments IEP IgG IEP IgA IEP IgM Cold Agglutinins Ref Test Comments Active Medications Generic Name Dose Route Start Last Admin Trade Name Tr PRN Reason Stop Dose Admin Folic Acid 1 mg 05/27/17 12:00 05/29/17 09:56 Folic Acid - PO 1 mg DAILY JANE Administration Lactated Ringer's 1,000 ml in 1,000 mls @ 125 mls/hr 05/29/17 01:00 05/29/17 10:29 Lactated Ringers Solution IV 125 mls/hr ASDIR JANE Administration Prednisone 50 mg 05/29/17 12:15 05/29/17 13:29 Deltasone - PO 50 mg DAILY@0800 JANE Administration ASSESSMENT/PLAN: Cholestatic liver dysfunction impoving. Possibilities in the differential include: * ERCP showed normal appearing ampulla with normal biliary tree with no evidence of stricture, stone or filling defect. * No standing medication as cause of DILI * Possible Autoimmune hepatitis/overlap syndrome Anemia: * Found to have signs of hemolysis with elevated LDH and Low haptoglobin * Found to have both warm and cold aggutination. placed on oral prednisone. * May represent a lymphoproliferative process. Heart Murmur: * Unclear if previously evaluated. Plan: Will have bone marrow biopsy tomorrow as per Hem/Onc Hepatitis serologies negative Advance diet to regular diet. Continue to Monitor liver chemistries and CBC Avoid hepatotoxic agent. (tylenol discontinued) Work up of heart murmur per PMD. Problem List - Problems (1) Jaundice (2) Macrocytic anemia (3) Abdominal pain (4) Anorexia (5) Elevated LFTs (6) Elevated bilirubin (7) Weight loss Visit type - Emergency Visit Emergency Visit: Yes ED Registration Date: 05/24/17 Care time: The patient presented to the Emergency Department on the above date and was hospitalized for further evaluation of their emergent condition. - New Patient This patient is new to me today: No - Critical Care Critical Care patient: No
--- NOTE | 2017-05-29 16:24 | PN ---
Teaching Attending Note Name of Resident: Kei Wong ATTENDING PHYSICIAN STATEMENT I saw and evaluated the patient. I reviewed the resident's note and discussed the case with the resident. I agree with the resident's findings and plan as documented. SUBJECTIVE: No acute events today States feeling well Afebrile over last 24 hrs OBJECTIVE: Mildly icteric Hrt RRR Lungs: CTA B/l Abd: sft, +BS, NT/ND Ext: trace b/l LE edema ASSESSMENT 1. Cholestatic liver dysfunction: ERCP yielded ? silt and stone debris. ? is passed stones and if hemolysis contributing to this as well 2. Hemolytic anemia PLAN: Monitoring LFT's. If no continued improvement, liver biopsy would need to be considered to exclude alternate pathologies such as infiltrative process Avoid heptotoxic agents Heme w/u in progress, for bone marrow bx tomorrow
[2017-05-30] MEDS: LACTATED RINGERS SOLUTION 1,000 ML/1,000 ML INFUS.BAG IV SCH (02:40)
[2017-05-30 08:10] LABS: ALBUMIN 2.1 g/dl (3.4-5.0); BILIRUBIN,DIRECT 2.5 mg/dL (0.0-0.2)
[2017-05-30 08:13] LABS: BILIRUBIN,TOTAL 3.2 mg/dL (0.2-1.0); TOT PROT 6.9 g/dl (6.4-8.2)
[2017-05-30] MEDS: predniSONE 20 MG TABLET (UD) PO SCH (08:53)
--- NOTE | 2017-05-30 09:23 | PN ---
Physical Exam: SUBJECTIVE: Patient seen and examined at bedside. No overnight events. No new complaints. Tolerating regular diet.She has not had BM in several days. No abdominal pain. Denies CP,ROBERTO, SOB, palpitations, N/V. OBJECTIVE: Vital Signs Period Temp Pulse Resp BP Sys/Morales Pulse Ox Last 24 Hr 97.8 F-98.2 F 70-77 16-20 92-136/28-70 95 GENERAL: AAOx3 ,NAD HEENT: icterus improved. LUNGS:CTAB, no wheezing or rales. HEART: RRR, NL S1S2, 2/6 CASIE RSB ABDOMEN: Soft, NL BS, NT/ND, no organomegally. EXTREMITIES:Trace BL LE edema. Laboratory Results - last 24 hr 05/27/17 05/29/17 05/30/17 06:30 06:15 06:00 WBC 8.6 D RBC 2.50 L Hgb 8.7 L Hct 27.2 L MCV 109.0 H MCH 34.8 H MCHC 31.9 L RDW 24.1 H Plt Count 160 MPV 8.7 Neutrophils % 65.6 D Lymphocytes % 20.1 Monocytes % 9.7 Eosinophils % 3.7 Basophils % 0.9 Retic Count 7.67 H D Total Bilirubin 3.2 H Direct Bilirubin 2.5 H AST 76 H ALT 115 H Alkaline Phosphatase 471 H Total Protein 6.9 Albumin 2.1 L Globulin 4.1 H Beta Globulins 0.9 JUNI & SPEP Interp Total Protein (JUNI) 6.3 Albumin (JUNI) 2.2 L Albumin/Globulin (JUNI) 0.6 L Asrqi-0-Jisgwdpxe JUNI 0.1 Orpia-9-Rxmxplfle JUNI 0.5 Gamma Globulins (JUNI) 2.6 H JUNI M-Davidson Not observed JUNI Comments IEP IgG 2491 H IEP IgA 354 IEP IgM 234 H Active Medications Generic Name Dose Route Start Last Admin Trade Name Freq PRN Reason Stop Dose Admin Folic Acid 1 mg 05/27/17 12:00 05/29/17 09:56 Folic Acid - PO 1 mg DAILY JANE Administration Lactated Ringer's 1,000 ml in 1,000 mls @ 125 mls/hr 05/29/17 01:00 05/30/17 02:40 Lactated Ringers Solution IV 125 mls/hr ASDIR JANE Administration Prednisone 50 mg 05/29/17 12:15 05/30/17 08:53 Deltasone - PO 50 mg DAILY@0800 JANE Administration ASSESSMENT/PLAN: Cholestatic liver dysfunction impoving. Elevated LFT's : * stable at this time. Anemia: * Found to have signs of hemolysis with elevated LDH and Low haptoglobin * Found to have both warm and cold aggutination. placed on oral prednisone. * May represent a lymphoproliferative process. Heart Murmur: * Unclear if previously evaluated. Plan: Will have bone marrow biopsy today as per Hem/Onc Hepatitis serologies negative continue with regular diet. Will give colace and senna for constipation. Continue to Monitor liver chemistries and CBC Avoid hepatotoxic agent. (tylenol discontinued) Work up of heart murmur per PMD Problem List - Problems (1) Jaundice (2) Macrocytic anemia (3) Abdominal pain (4) Anorexia (5) Elevated LFTs (6) Elevated bilirubin (7) Weight loss Visit type - Emergency Visit Emergency Visit: Yes ED Registration Date: 05/24/17 Care time: The patient presented to the Emergency Department on the above date and was hospitalized for further evaluation of their emergent condition. - New Patient This patient is new to me today: No - Critical Care Critical Care patient: No
[2017-05-30] MEDS ORDERED: LIDOCAINE HCL 1%, 10 MG/ML (20ML VIAL) ONE (10:18)
[2017-05-30] MEDS: FOLIC ACID 1 MG TABLET (FP) PO SCH (10:20)
--- NOTE | 2017-05-30 13:36 | PN ---
Progress Note (short form) - Note Progress Note: Patient seen and examined. Events reviewed. denies any symptoms. O/E: general : in No acute distress HEENT: NCAT, decreasing scleral icterus Cor: RRR Lungs: CTA b/l Extremities: No CCE Neuro: AAOX3 Last Vital Signs Temp Pulse Resp BP Pulse Ox 97.9 F 78 20 148/66 95 05/30/17 14:59 05/30/17 14:59 05/30/17 14:59 05/30/17 14:59 05/30/17 09:00 CBC, BMP 05/29/17 06:15 05/29/17 06:15 Current Medications Generic Name Dose Route Start Last Admin Trade Name Freq PRN Reason Stop Dose Admin Folic Acid 1 mg 05/27/17 12:00 05/30/17 10:20 Folic Acid - PO 1 mg DAILY JANE Administration Lactated Ringer's 1,000 ml in 1,000 mls @ 125 mls/hr 05/29/17 01:00 05/30/17 02:40 Lactated Ringers Solution IV 125 mls/hr ASDIR JANE Administration Prednisone 50 mg 05/29/17 12:15 05/30/17 08:53 Deltasone - PO 50 mg DAILY@0800 JANE Administration Warm AIHA -c.w prednisone 50mg for now -s/p bone marrow biopsy and aspiration ( see procedure note ) to r/o a primary lympho-proliferative disorder. RN assistance appreciated during procedure. -c/w folate -monitor CBC. Cholestatsis -GI w.u appreciated -to consider Liver biopsy. dw patient eliana RN.
--- NOTE | 2017-05-30 14:31 | PN ---
Progress Note, Physician History of Present Illness: PULMONARY NO RESP DISTRESS,CURRENTLY HAVING BONE MARROW ASPIRATION AN BX PERFORMED - Current Medication List Current Medications: Active Medications Folic Acid (Folic Acid -) 1 mg PO DAILY ON LICENSE OF [facility] Last Admin: 05/30/17 10:20 Dose: 1 mg Lactated Ringer's (Lactated Ringers Solution) 1,000 ml in 1,000 mls @ 125 mls/ hr IV ASDIR ON LICENSE OF [facility] Last Admin: 05/30/17 02:40 Dose: 125 mls/hr Prednisone (Deltasone -) 50 mg PO DAILY@0800 ON LICENSE OF [facility] Last Admin: 05/30/17 08:53 Dose: 50 mg - Objective Vital Signs: Vital Signs Temperature 97.8 F 05/30/17 10:00 Pulse Rate 66 05/30/17 10:00 Respiratory Rate 20 05/30/17 10:00 Blood Pressure 131/68 05/30/17 10:00 O2 Sat by Pulse Oximetry (%) 95 05/30/17 09:00 Constitutional: Yes: Well Nourished, Calm Eyes: Yes: WNL HENT: Yes: WNL Neck: Yes: WNL Cardiovascular: Yes: Regular Rate and Rhythm, S1, S2 Respiratory: Yes: CTA Bilaterally Gastrointestinal: Yes: Normal Bowel Sounds, Soft Extremities: Yes: WNL Edema: No Labs: CBC, BMP Assessment/Plan Problem List - Problems (1) Jaundice Code(s): R17 - UNSPECIFIED JAUNDICE (2) Elevated bilirubin Code(s): R17 - UNSPECIFIED JAUNDICE (3) Weakness Code(s): R53.1 - WEAKNESS (4) Anorexia Code(s): R63.0 - ANOREXIA (5) Weight loss Code(s): R63.4 - ABNORMAL WEIGHT LOSS PLAN: Follow CBC PO advance per GI O2 as needed SCDs OOB to chair Heme w/u DR CUMMINS
--- NOTE | 2017-05-30 15:14 | PROC ---
Bone Marrow Aspiration/Biopsy - Consent Indication: Diagnostic Risks and Benefits Explained: Yes Consent on Chart: Yes - Procedure Location: Right Iliac Crest Anesthesia: 1% Lidocaine Sterile Technique: Yes Specimen: Obtained Position: Other (left lateral decubiti) Patient tolerated procedure: Well with minimal pain Sterile Dressing Applied: Yes Remarks: successful bone marrow aspirate and biopsy. Tolerated well post procedural instructions given Smears, green tops, clot, core submitted for comprehensive bone marrow panel
--- NOTE | 2017-05-30 17:13 | PN ---
GI Progress Note Subjective: GI NOte: Bone marrow biopsy done by Dr Terry. Jordana has no complaints at present other than constipation. Her jaundice has not resolved following the ERCP which indicates there is another component causing cholestasis. This could be an infiltrative process and agree with Dr Terry that if the bone marrow biopsy is nondiagnostic that a liver biopsy is the next step. This would also help to exclude hemachromatosis - Objective Vital Signs: Vital Signs Temperature 97.9 F 05/30/17 14:59 Pulse Rate 78 05/30/17 14:59 Respiratory Rate 20 05/30/17 14:59 Blood Pressure 148/66 05/30/17 14:59 O2 Sat by Pulse Oximetry (%) 95 05/30/17 09:00 Laboratory Tests 05/25/17 05/25/17 05/28/17 06:00 06:00 05:35 Hgb 7.4 L Iron Saturation 80 H Ferritin 1269.506 H Total Bilirubin Direct Bilirubin Alkaline Phosphatase CJ Screen Negative Hep A IgM Ab Confirm Negative Hepatitis A Ab Total Positive H Hep Bs Antigen Negative Hep Bs Antibody Non reactive Hep B Core Total Ab Negative Hepatitis C Antibody 0.1 05/28/17 05/28/17 05/29/17 05:35 14:50 06:15 Hgb 9.3 L D Iron Saturation Ferritin Total Bilirubin 3.9 H 3.2 H Direct Bilirubin 3.1 H Alkaline Phosphatase 531 H 414 H CJ Screen Hep A IgM Ab Confirm Hepatitis A Ab Total Hep Bs Antigen Hep Bs Antibody Hep B Core Total Ab Hepatitis C Antibody 05/29/17 05/30/17 06:15 06:00 Hgb 8.7 L Iron Saturation Ferritin Total Bilirubin 3.2 H Direct Bilirubin 2.5 H Alkaline Phosphatase 471 H CJ Screen Hep A IgM Ab Confirm Hepatitis A Ab Total Hep Bs Antigen Hep Bs Antibody Hep B Core Total Ab Hepatitis C Antibody Constitutional: Calm ...Auscultate: Yes: Normoactive Bowel Sounds ...Palpate: Yes: Soft, Other (nontender) Labs: CBC, BMP 05/29/17 06:15 05/29/17 06:15 INR, PTT INR 1.24 (0.82-1.09) H 05/29/17 06:15 Problem List - Problems (1) Jaundice Assessment/Plan: CBD stones do not fully account for the direct hyperbilirubiunemia. There is a cholestatic liver process that may be a malignant infiltration or perhaps cirrhosis related to hemachromatosis. Her iron sat in 80% and CRP normal in the face of elevated ferritin. We discussed the possible need for a liver biopsy. Dr Travis will be covering this weekend. Code(s): R17 - UNSPECIFIED JAUNDICE (2) Abdominal pain Code(s): R10.9 - UNSPECIFIED ABDOMINAL PAIN Qualifiers: Abdominal location: generalized Qualified Code(s): R10.84 - Generalized abdominal pain (3) Weight loss Code(s): R63.4 - ABNORMAL WEIGHT LOSS (4) Anorexia Code(s): R63.0 - ANOREXIA (5) Weakness Code(s): R53.1 - WEAKNESS
[2017-05-30] MEDS: POLYETHYLENE GLYCOL 3350 119 GM BTL PO SCH (21:09)
[2017-05-31] MEDS: POLYETHYLENE GLYCOL 3350 119 GM BTL PO SCH ×2 (09:03→21:13)
[2017-05-31] MEDS: predniSONE 20 MG TABLET (UD) PO SCH (09:04)
[2017-05-31] MEDS: FOLIC ACID 1 MG TABLET (FP) PO SCH (09:04)
--- NOTE | 2017-05-31 10:59 | PN ---
Progress Note (short form) - Note Progress Note: PULMONARY/MED s/p BMBx. Denies shortness of breath or chest pain. Legs more swollen today. Last Vital Signs Temp Pulse Resp BP Pulse Ox 98.1 F 76 20 126/64 95 05/30/17 22:00 05/30/17 22:00 05/30/17 22:00 05/30/17 22:00 05/30/17 21:00 Gen: NAD at rest Heart: RRR Lung: decreased breath sounds at the bases Abd: soft, nontender Ext: trace edema CBC, BMP 05/29/17 06:15 05/29/17 06:15 Active Medications Folic Acid (Folic Acid -) 1 mg PO DAILY [facility] Last Admin: 05/31/17 09:04 Dose: 1 mg Polyethylene Glycol (Miralax (For Daily Use) -) 17 gm PO BID [facility] Last Admin: 05/31/17 09:03 Dose: 17 gm Prednisone (Deltasone -) 50 mg PO DAILY@0800 [facility] Last Admin: 05/31/17 09:04 Dose: 50 mg A/P Autoimmune Hemolytic Anemia Jaundice/Cholestasis Elevated LFTs - continue prednisone per heme - monitor H/H - f/u BM Bx - PO as tolerated - DVT prophylaxis
--- NOTE | 2017-05-31 13:56 | PN ---
Progress Note (short form) - Note Progress Note: PAtient seen and examined Feels much better Last Vital Signs Temp Pulse Resp BP Pulse Ox 97.5 F L 75 20 145/75 95 05/31/17 17:32 05/31/17 17:32 05/31/17 17:32 05/31/17 17:32 05/30/17 21:00 Cor: RSR, No murmurs, No gallops Lungs: Clear to P&A Abd: Soft, Normal bowel sounds, No organomegaly Ext:No significant edema Skin: No rashes, Integument intact Abnormal Lab Results 05/27/17 05/31/17 06:30 06:00 LD Total 305 H Antibody Screen Positive H Direct Antiglob Test Positive H Crossmatch See Detail Active Medications Generic Name Dose Route Start Last Admin Trade Name Freq PRN Reason Stop Dose Admin Folic Acid 1 mg 05/27/17 12:00 05/31/17 09:04 Folic Acid - PO 1 mg DAILY JANE Administration Polyethylene Glycol 17 gm 05/30/17 22:00 05/31/17 09:03 Miralax (For Daily Use) - PO 17 gm BID JANE Administration Prednisone 50 mg 05/29/17 12:15 05/31/17 09:04 Deltasone - PO 50 mg DAILY@0800 JANE Administration A/P 82 y/o patient with painless jaundice/hyperbilirubinemia and 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
[2017-06-01 08:12] LABS: BASO % 0.8 % (0-2.0); EOS % 6.7 % (0-4.5); HEMATOCRIT 29.6 % (32.4-45.2); HEMOGLOBIN 9.7 GM/dL (10.7-15.3); LYMPH % 31.2 % (8-40); MCH 35.4 pg (25.7-33.7); MCHC 32.8 g/dl (32.0-36.0); MEAN CELL VOLUME 107.9 fl (80-96); MEAN PLT VOLUME 7.7 fl (7.5-11.1); MONO % 8.8 % (3.8-10.2); NEUT % 52.5 % (42.8-82.8); PLATELET COUNT 201 K/MM3 (134-434); RBC 2.74 M/mm3 (3.60-5.2); RDW 21.6 % (11.6-15.6); WHITE BLOOD COUNT 7.8 K/mm3 (4.0-10.0)
[2017-06-01] MEDS: predniSONE 20 MG TABLET (UD) PO SCH (08:23)
[2017-06-01 08:28] LABS: CHLORIDE 104 mmol/L (98-107); POTASSIUM 3.8 mmol/L (3.5-5.1); SODIUM 139 mmol/L (136-145)
[2017-06-01 08:39] LABS: ALBUMIN 2.3 g/dl (3.4-5.0); ALK PHOS 397 U/L (45-117); ANION GAP 7 (8-16); BILIRUBIN,DIRECT 2.2 mg/dL (0.0-0.2); BILIRUBIN,TOTAL 2.8 mg/dL (0.2-1.0); BLOOD UREA NITROGEN 11 mg/dL (7-18); CALCIUM 7.6 mg/dL (8.5-10.1); CO2 28 mmol/L (21-32); CREATININE 0.5 mg/dL (0.55-1.02); GLUCOSE,RANDOM 77 mg/dL (74-106); PHOSPHOROUS 2.8 mg/dL (2.5-4.9); SGOT/AST 71 U/L (15-37); SGPT/ALT 111 U/L (12-78)
[2017-06-01 08:58] LABS: ADD RBC MORPHOLOGY YES
[2017-06-01] MEDS: FOLIC ACID 1 MG TABLET (FP) PO SCH (09:06)
[2017-06-01] MEDS: POLYETHYLENE GLYCOL 3350 119 GM BTL PO SCH ×2 (09:06→23:41)
[2017-06-01 09:29] LABS: ANISOCYTOSIS 2+; MACROCYTOSIS 1+
[2017-06-01 09:30] LABS: PLATELET ESTIMATE ADEQUATE
--- NOTE | 2017-06-01 11:09 | PN ---
Progress Note (short form) - Note Progress Note: PULMONARY/MED Denies shortness of breath or chest pain. No fevers or chills. Tolerating PO. Last Vital Signs Temp Pulse Resp BP Pulse Ox 98 F 64 20 138/70 95 06/01/17 06:36 06/01/17 06:36 06/01/17 06:36 06/01/17 06:36 05/31/17 21:00 Gen: NAD at rest Heart: RRR Lung: decreased breath sounds at the bases Abd: soft, nontender Ext: trace edema CBC, BMP 06/01/17 07:15 06/01/17 07:15 Hepatic Panel Total Bilirubin 2.8 mg/dL (0.2-1.0) H 06/01/17 07:15 Direct Bilirubin 2.2 mg/dL (0.0-0.2) H 06/01/17 07:15 AST 71 U/L (15-37) H 06/01/17 07:15 ALT 111 U/L (12-78) H 06/01/17 07:15 Alkaline Phosphatase 397 U/L (45-117) H 06/01/17 07:15 Albumin 2.3 g/dl (3.4-5.0) L 06/01/17 07:15 A/P Autoimmune Hemolytic Anemia Jaundice/Cholestasis Elevated LFTs - continue prednisone per heme - monitor H/H - f/u BM Bx - may need liver biopsy - PO as tolerated - DVT prophylaxis
[2017-06-02 07:39] LABS: BASO % 0.7 % (0-2.0); EOS % 6.1 % (0-4.5); HEMATOCRIT 34.8 % (32.4-45.2); HEMOGLOBIN 11.3 GM/dL (10.7-15.3); LYMPH % 32.5 % (8-40); MCH 35.3 pg (25.7-33.7); MCHC 32.5 g/dl (32.0-36.0); MEAN CELL VOLUME 108.5 fl (80-96); MEAN PLT VOLUME 8.1 fl (7.5-11.1); MONO % 7.4 % (3.8-10.2); NEUT % 53.3 % (42.8-82.8); PLATELET COUNT 257 K/MM3 (134-434); RBC 3.21 M/mm3 (3.60-5.2); RDW 21.3 % (11.6-15.6); WHITE BLOOD COUNT 8.4 K/mm3 (4.0-10.0)
[2017-06-02 07:58] LABS: INR 1.05 (0.82-1.09); PROTHROMBIN TIME (PATIENT) 11.9 SEC (9.98-11.88)
[2017-06-02 08:01] LABS: ACTIVATED PTT 26.8 SECONDS (26.9-34.4)
[2017-06-02 08:18] LABS: CHLORIDE 103 mmol/L (98-107); POTASSIUM 3.8 mmol/L (3.5-5.1); SODIUM 139 mmol/L (136-145)
[2017-06-02 08:27] LABS: ALBUMIN 2.6 g/dl (3.4-5.0); ALK PHOS 409 U/L (45-117); ANION GAP 9 (8-16); BILIRUBIN,DIRECT 2.3 mg/dL (0.0-0.2); BILIRUBIN,TOTAL 2.9 mg/dL (0.2-1.0); BLOOD UREA NITROGEN 12 mg/dL (7-18); CALCIUM 8.1 mg/dL (8.5-10.1); CO2 27 mmol/L (21-32); CREATININE 0.5 mg/dL (0.55-1.02); GLUCOSE,RANDOM 69 mg/dL (74-106); MAGNESIUM 2.2 mg/dL (1.8-2.4); PHOSPHOROUS 3.1 mg/dL (2.5-4.9); SGOT/AST 62 U/L (15-37); SGPT/ALT 113 U/L (12-78); TOT PROT 7.9 g/dl (6.4-8.2)
[2017-06-02] MEDS: FOLIC ACID 1 MG TABLET (FP) PO SCH (09:45)
[2017-06-02] MEDS: predniSONE 20 MG TABLET (UD) PO SCH (09:45)
[2017-06-02] MEDS: POLYETHYLENE GLYCOL 3350 119 GM BTL PO SCH ×3 (09:47→21:36)
--- NOTE | 2017-06-02 10:01 | PN ---
GI Progress Note Subjective: GI NOte: LFT improvement has leveled off. There remains a component of cholestatic jaundice. Await results of bone marrow biopsy. If unrevealing would pursue liver biopsy. - Objective Vital Signs: Vital Signs Temperature 98.1 F 06/02/17 09:05 Pulse Rate 71 06/02/17 09:05 Respiratory Rate 16 06/02/17 09:05 Blood Pressure 139/62 06/02/17 09:05 O2 Sat by Pulse Oximetry (%) 98 06/01/17 21:00 Laboratory Tests 05/28/17 05/30/17 06/01/17 05:35 06:00 07:15 Hct 29.6 L Total Bilirubin 3.9 H 3.2 H Direct Bilirubin 3.1 H AST ALT Alkaline Phosphatase 531 H 06/02/17 06/02/17 06:00 06:00 Hct 34.8 D Total Bilirubin 2.9 H Direct Bilirubin 2.3 H AST 62 H ALT 113 H Alkaline Phosphatase 409 H Constitutional: Calm ...Auscultate: Yes: Normoactive Bowel Sounds ...Palpate: Yes: Soft Labs: CBC, BMP 06/02/17 06:00 06/02/17 06:00 INR, PTT INR 1.05 (0.82-1.09) 06/02/17 06:00 Problem List - Problems (1) Jaundice Assessment/Plan: There is a cholestatic liver process that may be a malignant infiltration or perhaps cirrhosis related to hemachromatosis. Her iron sat in 80% and CRP normal in the face of elevated ferritin. We again discussed the possible need for a liver biopsy. Code(s): R17 - UNSPECIFIED JAUNDICE (2) Abdominal pain Code(s): R10.9 - UNSPECIFIED ABDOMINAL PAIN Qualifiers: Abdominal location: generalized Qualified Code(s): R10.84 - Generalized abdominal pain (3) Weight loss Code(s): R63.4 - ABNORMAL WEIGHT LOSS (4) Anorexia Code(s): R63.0 - ANOREXIA (5) Weakness Code(s): R53.1 - WEAKNESS
--- NOTE | 2017-06-02 10:38 | PN ---
Progress Note (short form) - Note Progress Note: PULMONARY/MED No specific complaintes. No nausea, vomiting or abdominal pain. Denies shortness of breath or chest pain. No fevers or chills. Tolerating PO. Last Vital Signs Temp Pulse Resp BP Pulse Ox 98.1 F 71 16 139/62 98 06/02/17 09:05 06/02/17 09:05 06/02/17 09:05 06/02/17 09:05 06/01/17 21:00 Gen: NAD at rest Heart: RRR Lung: decreased breath sounds at the bases Abd: soft, nontender Ext: trace edema CBC, BMP 06/02/17 06:00 06/02/17 06:00 Hepatic Panel Total Bilirubin 2.9 mg/dL (0.2-1.0) H 06/02/17 06:00 Direct Bilirubin 2.3 mg/dL (0.0-0.2) H 06/02/17 06:00 AST 62 U/L (15-37) H 06/02/17 06:00 ALT 113 U/L (12-78) H 06/02/17 06:00 Alkaline Phosphatase 409 U/L (45-117) H 06/02/17 06:00 Albumin 2.6 g/dl (3.4-5.0) L 06/02/17 06:00 Active Medications Folic Acid (Folic Acid -) 1 mg PO DAILY [facility] Last Admin: 06/02/17 09:45 Dose: 1 mg Polyethylene Glycol (Miralax (For Daily Use) -) 17 gm PO BID [facility] Last Admin: 06/02/17 09:47 Dose: Not Given Prednisone (Deltasone -) 50 mg PO DAILY@0800 [facility] Last Admin: 06/02/17 09:45 Dose: 50 mg A/P Autoimmune Hemolytic Anemia Jaundice/Cholestasis Elevated LFTs - continue prednisone per heme - monitor H/H - f/u BM Bx - may need liver biopsy - monitor LFTs - PO as tolerated - DVT prophylaxis
--- NOTE | 2017-06-02 10:41 | PN ---
<Kei Wong - Last Filed: 06/03/17 15:50> Physical Exam: SUBJECTIVE: Patient seen and examined at bedside. S/P Bone marrow Bx. toleratated the procedure well. Denies pain. She has had well formed BM's over weekend. Denies CP, ROBERTO, Abdominal pain, N/V. OBJECTIVE: Vital Signs Period Temp Pulse Resp BP Sys/Morales Pulse Ox Last 24 Hr 98.1 F-98.5 F 62-71 16-20 121-139/62-71 98 GENERAL: AAOx3 ,NAD HEENT: icterus improved. LUNGS:CTAB, no wheezing or rales. HEART: RRR, NL S1S2, 2/6 CASIE RSB ABDOMEN: Soft, NL BS, NT/ND, no organomegally. EXTREMITIES:Trace BL LE edema. Laboratory Results - last 24 hr 06/02/17 06/02/17 06/02/17 06:00 06:00 06:00 WBC 8.4 RBC 3.21 L Hgb 11.3 D Hct 34.8 D MCV 108.5 H MCH 35.3 H MCHC 32.5 RDW 21.3 H Plt Count 257 D MPV 8.1 Neutrophils % 53.3 Lymphocytes % 32.5 Monocytes % 7.4 Eosinophils % 6.1 H Basophils % 0.7 PT with INR 11.90 H INR 1.05 PTT (Actin FS) 26.8 L Sodium 139 Potassium 3.8 Chloride 103 Carbon Dioxide 27 Anion Gap 9 BUN 12 Creatinine 0.5 L Random Glucose 69 L Calcium 8.1 L Phosphorus 3.1 Magnesium 2.2 Total Bilirubin 2.9 H Direct Bilirubin 2.3 H AST 62 H ALT 113 H Alkaline Phosphatase 409 H Total Protein 7.9 Albumin 2.6 L Active Medications Generic Name Dose Route Start Last Admin Trade Name Freq PRN Reason Stop Dose Admin Folic Acid 1 mg 05/27/17 12:00 06/02/17 09:45 Folic Acid - PO 1 mg DAILY [facility] Administration Polyethylene Glycol 17 gm 05/30/17 22:00 06/02/17 09:47 Miralax (For Daily Use) - PO Not Given BID [facility] Prednisone 50 mg 05/29/17 12:15 06/02/17 09:45 Deltasone - PO 50 mg DAILY@0800 [facility] Administration ASSESSMENT/PLAN: Cholestatic liver dysfunction impoved and leveled off. Elevated LFT's : * Have remained stable Anemia: * s/p Bone marrow bx on 05/30/17; results pending. * Found to have signs of hemolysis with elevated LDH and Low haptoglobin * Found to have both warm and cold aggutination. placed on oral prednisone. * May represent a lymphoproliferative process. Heart Murmur: * Unclear if previously evaluated. Plan: * Awaiting Bone Marrow Bx results. * Possible need for liver biopsy * continue prednisone. * continue with regular diet. * continue Miralax for constipation. * Continue to Monitor liver chemistries and CBC * Avoid hepatotoxic agent. * Work up of heart murmur per PMD Problem List - Problems (1) Jaundice (2) Macrocytic anemia (3) Abdominal pain (4) Anorexia (5) Elevated LFTs (6) Elevated bilirubin (7) Weight loss Visit type - Emergency Visit Emergency Visit: Yes ED Registration Date: 05/24/17 Care time: The patient presented to the Emergency Department on the above date and was hospitalized for further evaluation of their emergent condition. - New Patient This patient is new to me today: No - Critical Care Critical Care patient: No <Vinicio Bansal Reid - Last Filed: 06/03/17 17:16> Physical Exam: SUBJECTIVE: Patient seen and examined OBJECTIVE: Vital Signs Period Temp Pulse Resp BP Sys/Morales Pulse Ox Last 24 Hr 97.1 F-98.4 F 72-86 16-20 111-137/52-76 98-98 GENERAL: The patient is awake, alert, and fully oriented, in no acute distress. HEAD: Normal with no signs of trauma. EYES: PERRL, extraocular movements intact, sclera anicteric, conjunctiva clear. No ptosis. ENT: Ears normal, nares patent, oropharynx clear without exudates, moist mucous membranes. NECK: Trachea midline, full range of motion, supple. LUNGS: Breath sounds equal, clear to auscultation bilaterally, no wheezes, no crackles, no accessory muscle use. HEART: Regular rate and rhythm, S1, S2 without murmur, rub or gallop. ABDOMEN: Soft, nontender, nondistended, normoactive bowel sounds, no guarding, no rebound, no hepatosplenomegaly, no masses. EXTREMITIES: 2+ pulses, warm, well-perfused, no edema. NEUROLOGICAL: Cranial nerves II through XII grossly intact. Normal speech, gait not observed. PSYCH: Normal mood, normal affect. SKIN: Warm, dry, normal turgor, no rashes or lesions noted Laboratory Results - last 24 hr 05/27/17 06/01/17 06/03/17 06:30 07:15 06:30 WBC 8.6 RBC 3.02 L Hgb 10.7 Hct 32.5 MCV 107.6 H MCH 35.6 H MCHC 33.1 RDW 20.6 H Plt Count 309 D MPV 8.3 Neutrophils % 58.0 Lymphocytes % 28.8 Monocytes % 7.9 Eosinophils % 4.5 Basophils % 0.8 Sodium Potassium Chloride Carbon Dioxide Anion Gap BUN Creatinine Random Glucose Calcium Phosphorus Magnesium Total Bilirubin Direct Bilirubin AST ALT Alkaline Phosphatase Total Protein Albumin Smooth Musc &[employer] Intrp 46 H Antibody Identification No Result Required. Antigen Identification No Result Required. 06/03/17 06:30 WBC RBC Hgb Hct MCV MCH MCHC RDW Plt Count MPV Neutrophils % Lymphocytes % Monocytes % Eosinophils % Basophils % Sodium 138 Potassium 4.0 Chloride 103 Carbon Dioxide 28 Anion Gap 7 L BUN 13 Creatinine 0.5 L Random Glucose 69 L Calcium 8.3 L Phosphorus 2.9 Magnesium 2.3 Total Bilirubin 2.6 H Direct Bilirubin 2.2 H AST 51 H ALT 101 H Alkaline Phosphatase 342 H Total Protein 7.6 Albumin 2.6 L Smooth Musc [employer] Intrp Antibody Identification Antigen Identification Active Medications Generic Name Dose Route Start Last Admin Trade Name Freq PRN Reason Stop Dose Admin Folic Acid 1 mg 05/27/17 12:00 06/03/17 09:06 Folic Acid - PO 1 mg DAILY JANE Administration Pantoprazole Sodium 40 mg 06/03/17 10:00 06/03/17 09:06 Protonix - PO 40 mg DAILY [facility]ANE Administration Polyethylene Glycol 17 gm 05/30/17 22:00 06/03/17 09:08 Miralax (For Daily Use) - PO Not Given BID [facility] Prednisone 40 mg 06/03/17 08:00 06/03/17 08:30 Deltasone - PO 40 mg DAILY@0800 JANE Administration ASSESSMENT/PLAN: Please see my progress note. case discussed and reviewed with Dr Wong Problem List - Problems (1) Jaundice Code(s): R17 - UNSPECIFIED JAUNDICE (2) Abdominal pain Code(s): R10.9 - UNSPECIFIED ABDOMINAL PAIN Qualifiers: Abdominal location: generalized Qualified Code(s): R10.84 - Generalized abdominal pain (3) Weight loss Code(s): R63.4 - ABNORMAL WEIGHT LOSS (4) Anorexia Code(s): R63.0 - ANOREXIA (5) Weakness Code(s): R53.1 - WEAKNESS
--- NOTE | 2017-06-02 18:36 | PN ---
Progress Note (short form) - Note Progress Note: PAtient seen and examined Feels much better Last Vital Signs Temp Pulse Resp BP Pulse Ox 98 F 74 20 123/52 98 06/02/17 16:10 06/02/17 16:10 06/02/17 16:10 06/02/17 16:10 06/02/17 09:00 Cor: RSR, No murmurs, No gallops Lungs: Clear to P&A Abd: Soft, Normal bowel sounds, No organomegaly Ext:No significant edema Abnormal Lab Results 06/02/17 06/02/17 06/02/17 06:00 06:00 06:00 RBC 3.21 L MCV 108.5 H MCH 35.3 H RDW 21.3 H Eosinophils % 6.1 H PT with INR 11.90 H PTT (Actin FS) 26.8 L Creatinine 0.5 L Random Glucose 69 L Calcium 8.1 L Total Bilirubin 2.9 H Direct Bilirubin 2.3 H AST 62 H ALT 113 H Alkaline Phosphatase 409 H Albumin 2.6 L Active Medications Generic Name Dose Route Start Last Admin Trade Name Cliffq PRN Reason Stop Dose Admin Folic Acid 1 mg 05/27/17 12:00 06/02/17 09:45 Folic Acid - PO 1 mg DAILY [facility] Administration Polyethylene Glycol 17 gm 05/30/17 22:00 06/02/17 14:36 Miralax (For Daily Use) - PO 17 gm BID [facility] Administration Prednisone 50 mg 05/29/17 12:15 06/02/17 09:45 Deltasone - PO 50 mg DAILY@0800 [facility] Administration A/P 82 y/o patient with painless jaundice/hyperbilirubinemia and 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 LFTS plateaud ? taper slowly s/p 1 unit PRBCs awaiting bmbx results possible liver biopsy
[2017-06-03 07:56] LABS: BASO % 0.8 % (0-2.0); EOS % 4.5 % (0-4.5); HEMATOCRIT 32.5 % (32.4-45.2); HEMOGLOBIN 10.7 GM/dL (10.7-15.3); LYMPH % 28.8 % (8-40); MCH 35.6 pg (25.7-33.7); MCHC 33.1 g/dl (32.0-36.0); MEAN CELL VOLUME 107.6 fl (80-96); MEAN PLT VOLUME 8.3 fl (7.5-11.1); MONO % 7.9 % (3.8-10.2); PLATELET COUNT 309 K/MM3 (134-434); RBC 3.02 M/mm3 (3.60-5.2); RDW 20.6 % (11.6-15.6); WHITE BLOOD COUNT 8.6 K/mm3 (4.0-10.0)
[2017-06-03 08:14] LABS: CHLORIDE 103 mmol/L (98-107); SODIUM 138 mmol/L (136-145)
[2017-06-03 08:21] LABS: ALBUMIN 2.6 g/dl (3.4-5.0); ALK PHOS 342 U/L (45-117); ANION GAP 7 (8-16); BILIRUBIN,DIRECT 2.2 mg/dL (0.0-0.2); BILIRUBIN,TOTAL 2.6 mg/dL (0.2-1.0); BLOOD UREA NITROGEN 13 mg/dL (7-18); CALCIUM 8.3 mg/dL (8.5-10.1); CO2 28 mmol/L (21-32); CREATININE 0.5 mg/dL (0.55-1.02); GLUCOSE,RANDOM 69 mg/dL (74-106); MAGNESIUM 2.3 mg/dL (1.8-2.4); PHOSPHOROUS 2.9 mg/dL (2.5-4.9); SGOT/AST 51 U/L (15-37); SGPT/ALT 101 U/L (12-78); TOT PROT 7.6 g/dl (6.4-8.2)
[2017-06-03] MEDS: predniSONE 20 MG TABLET (UD) PO SCH (08:30)
[2017-06-03] MEDS: PANTOPRAZOLE 40 MG TABLET (FP) PO SCH (09:06)
[2017-06-03] MEDS: FOLIC ACID 1 MG TABLET (FP) PO SCH (09:06)
[2017-06-03] MEDS: POLYETHYLENE GLYCOL 3350 119 GM BTL PO SCH ×2 (09:08→20:59)
--- NOTE | 2017-06-03 10:37 | PN ---
Progress Note (short form) - Note Progress Note: PULMONARY/MED Still awaiting BMBx results. No nausea, vomiting or abdominal pain. Denies shortness of breath or chest pain. No fevers or chills. Tolerating PO. Last Vital Signs Temp Pulse Resp BP Pulse Ox 97.7 F 74 20 137/76 98 06/03/17 06:00 06/03/17 06:00 06/03/17 06:00 06/03/17 06:00 06/02/17 21:00 Gen: NAD at rest Heart: RRR Lung: decreased breath sounds at the bases Abd: soft, nontender Ext: trace edema CBC, BMP 06/03/17 06:30 06/03/17 06:30 Active Medications Folic Acid (Folic Acid -) 1 mg PO DAILY [facility] Last Admin: 06/03/17 09:06 Dose: 1 mg Pantoprazole Sodium (Protonix -) 40 mg PO DAILY [facility] Last Admin: 06/03/17 09:06 Dose: 40 mg Polyethylene Glycol (Miralax (For Daily Use) -) 17 gm PO BID [facility] Last Admin: 06/03/17 09:08 Dose: Not Given Prednisone (Deltasone -) 40 mg PO DAILY@0800 [facility] Last Admin: 06/03/17 08:30 Dose: 40 mg A/P Autoimmune Hemolytic Anemia Jaundice/Cholestasis Elevated LFTs - continue prednisone per heme - monitor H/H - f/u BM Bx - may need liver biopsy pending results - monitor LFTs - PO as tolerated - DVT prophylaxis
--- NOTE | 2017-06-03 12:36 | PN ---
Progress Note (short form) - Note Progress Note: Patient seen and examined. Events reviewed. denies any symptoms. events reviewed feels much better O/E: general : in No acute distress HEENT: NCAT, no scleral icterus Cor: RRR Lungs: CTA b/l Extremities: mild pitting edema bilateral noted Neuro: AAOX3 Last Vital Signs Temp Pulse Resp BP Pulse Ox 98.4 F 86 16 111/52 98 06/03/17 10:00 06/03/17 10:00 06/03/17 10:00 06/03/17 10:00 06/02/17 21:00 CBC, BMP 06/03/17 06:30 06/03/17 06:30 Current Medications Generic Name Dose Route Start Last Admin Trade Name Freq PRN Reason Stop Dose Admin Folic Acid 1 mg 05/27/17 12:00 06/03/17 09:06 Folic Acid - PO 1 mg DAILY JANE Administration Pantoprazole Sodium 40 mg 06/03/17 10:00 06/03/17 09:06 Protonix - PO 40 mg DAILY JANE Administration Polyethylene Glycol 17 gm 05/30/17 22:00 06/03/17 09:08 Miralax (For Daily Use) - PO Not Given BID JANE Prednisone 40 mg 06/03/17 08:00 06/03/17 08:30 Deltasone - PO 40 mg DAILY@0800 JANE Administration 82 y/o patient with painless jaundice/hyperbilirubinemia and 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 LFTS plateaued tapered for 40mg from today ,would need a slow taper. bmbx results: FISH and flow negative. will need to await possible liver biopsy
--- NOTE | 2017-06-03 17:13 | PN ---
GI Progress Note Subjective: GI NOte: Jordana has no complaints. Her LFTs continue to slowly improve but have not normalized. I have discussed the case with Dr Terry. The FISH is negative but the core is still pending. I have advised Jordana to have a liver biopsy to exclude a lymphoma, an autoimmune liver disease and hemochromatosis among other possibilities. I have discussed the potential complications and Jordana is agreeable. I have also discussed the procedure with her niece and with Dr Hutchinson. - Objective Vital Signs: Vital Signs Temperature 97.1 F L 06/03/17 14:25 Pulse Rate 73 06/03/17 14:25 Respiratory Rate 18 06/03/17 14:25 Blood Pressure 117/63 06/03/17 14:25 O2 Sat by Pulse Oximetry (%) 98 06/03/17 09:00 Constitutional: No Distress ...Auscultate: Yes: Normoactive Bowel Sounds ...Palpate: Yes: Soft, Other (nontender) Labs: CBC, BMP 06/03/17 06:30 06/03/17 06:30 INR, PTT INR 1.05 (0.82-1.09) 06/02/17 06:00 Assessment/Plan Liver biopsy in AM Problem List - Problems (1) Jaundice Code(s): R17 - UNSPECIFIED JAUNDICE (2) Abdominal pain Code(s): R10.9 - UNSPECIFIED ABDOMINAL PAIN Qualifiers: Abdominal location: generalized Qualified Code(s): R10.84 - Generalized abdominal pain (3) Weight loss Code(s): R63.4 - ABNORMAL WEIGHT LOSS (4) Anorexia Code(s): R63.0 - ANOREXIA (5) Weakness Code(s): R53.1 - WEAKNESS
[2017-06-04 08:15] LABS: BASO % 1.1 % (0-2.0); EOS % 5.5 % (0-4.5); HEMATOCRIT 33.7 % (32.4-45.2); HEMOGLOBIN 11.1 GM/dL (10.7-15.3); LYMPH % 27.2 % (8-40); MCH 35.3 pg (25.7-33.7); MCHC 32.9 g/dl (32.0-36.0); MEAN CELL VOLUME 107.4 fl (80-96); MEAN PLT VOLUME 7.9 fl (7.5-11.1); MONO % 8.9 % (3.8-10.2); NEUT % 57.3 % (42.8-82.8); PLATELET COUNT 355 K/MM3 (134-434); RBC 3.14 M/mm3 (3.60-5.2); RDW 19.6 % (11.6-15.6); WHITE BLOOD COUNT 7.1 K/mm3 (4.0-10.0)
[2017-06-04 08:41] LABS: ALBUMIN 2.5 g/dl (3.4-5.0); ANION GAP 8 (8-16); BLOOD UREA NITROGEN 14 mg/dL (7-18); CALCIUM 8.1 mg/dL (8.5-10.1); CHLORIDE 105 mmol/L (98-107); CO2 29 mmol/L (21-32); GLUCOSE,RANDOM 70 mg/dL (74-106); MAGNESIUM 2.3 mg/dL (1.8-2.4); POTASSIUM 3.4 mmol/L (3.5-5.1); SODIUM 142 mmol/L (136-145)
[2017-06-04 08:44] LABS: ALK PHOS 313 U/L (45-117); BILIRUBIN,TOTAL 2.5 mg/dL (0.2-1.0); CREATININE 0.6 mg/dL (0.55-1.02); LDH 269 U/L (84-246); PHOSPHOROUS 3.3 mg/dL (2.5-4.9); SGOT/AST 42 U/L (15-37); SGPT/ALT 92 U/L (12-78); TOT PROT 7.3 g/dl (6.4-8.2)
[2017-06-04] MEDS: predniSONE 20 MG TABLET (UD) PO SCH ×2 (09:49→17:51)
[2017-06-04] MEDS: FOLIC ACID 1 MG TABLET (FP) PO SCH (09:49)
[2017-06-04] MEDS: POLYETHYLENE GLYCOL 3350 119 GM BTL PO SCH ×2 (09:49→21:56)
[2017-06-04] MEDS: PANTOPRAZOLE 40 MG TABLET (FP) PO SCH ×2 (09:49→17:53)
[2017-06-04] MEDS ORDERED: POTASSIUM CHLORIDE TABS 10 MEQ TABLET.ER (FP) PO ONE (17:03)
--- NOTE | 2017-06-04 17:03 | PN ---
Progress Note, Physician History of Present Illness: progress no distress,s/p liver bx - Current Medication List Current Medications: Active Medications Folic Acid (Folic Acid -) 1 mg PO DAILY [facility] Last Admin: 06/04/17 09:49 Dose: Not Given Pantoprazole Sodium (Protonix -) 40 mg PO DAILY [facility] Last Admin: 06/04/17 09:49 Dose: Not Given Polyethylene Glycol (Miralax (For Daily Use) -) 17 gm PO BID [facility] Last Admin: 06/04/17 09:49 Dose: Not Given Prednisone (Deltasone -) 40 mg PO DAILY@0800 [facility] Last Admin: 06/04/17 09:49 Dose: Not Given - Objective Vital Signs: Vital Signs Temperature 97.8 F 06/04/17 14:00 Pulse Rate 66 06/04/17 14:00 Respiratory Rate 18 06/04/17 14:00 Blood Pressure 128/50 06/04/17 14:00 O2 Sat by Pulse Oximetry (%) 99 06/04/17 11:59 Constitutional: Yes: Well Nourished, Calm Eyes: Yes: WNL HENT: Yes: WNL Neck: Yes: WNL Cardiovascular: Yes: Regular Rate and Rhythm, S1, S2 Respiratory: Yes: CTA Bilaterally Gastrointestinal: Yes: Normal Bowel Sounds, Soft Extremities: Yes: WNL Edema: No Labs: CBC, BMP 06/04/17 06:45 06/04/17 06:45 INR, PTT INR 1.05 (0.82-1.09) 06/02/17 06:00 Assessment/Plan Problem List - Problems (1) Jaundice Code(s): R17 - UNSPECIFIED JAUNDICE (2) Elevated bilirubin Code(s): R17 - UNSPECIFIED JAUNDICE (3) Weakness Code(s): R53.1 - WEAKNESS (4) Anorexia Code(s): R63.0 - ANOREXIA (5) Weight loss Code(s): R63.4 - ABNORMAL WEIGHT LOSS PLAN: Follow CBC O2 as needed SCDs OOB to chair replchristian CMUMINS
[2017-06-05 07:10] LABS: BASO % 0.5 % (0-2.0); EOS % 0.5 % (0-4.5); HEMATOCRIT 34.8 % (32.4-45.2); HEMOGLOBIN 11.5 GM/dL (10.7-15.3); LYMPH % 17.2 % (8-40); MCH 35.7 pg (25.7-33.7); MCHC 33.2 g/dl (32.0-36.0); MEAN CELL VOLUME 107.8 fl (80-96); MEAN PLT VOLUME 7.8 fl (7.5-11.1); MONO % 6.7 % (3.8-10.2); NEUT % 75.1 % (42.8-82.8); PLATELET COUNT 409 K/MM3 (134-434); RBC 3.23 M/mm3 (3.60-5.2); WHITE BLOOD COUNT 6.2 K/mm3 (4.0-10.0)
[2017-06-05 08:07] LABS: ANION GAP 6 (8-16); BLOOD UREA NITROGEN 14 mg/dL (7-18); CALCIUM 7.9 mg/dL (8.5-10.1); CHLORIDE 105 mmol/L (98-107); CO2 28 mmol/L (21-32); GLUCOSE,RANDOM 85 mg/dL (74-106); POTASSIUM 4.1 mmol/L (3.5-5.1); SODIUM 139 mmol/L (136-145)
[2017-06-05 08:08] LABS: CREATININE 0.5 mg/dL (0.55-1.02)
[2017-06-05] MEDS: predniSONE 20 MG TABLET (UD) PO SCH (08:47)
[2017-06-05] MEDS: FOLIC ACID 1 MG TABLET (FP) PO SCH (09:47)
[2017-06-05] MEDS: PANTOPRAZOLE 40 MG TABLET (FP) PO SCH (09:47)
[2017-06-05] MEDS: POLYETHYLENE GLYCOL 3350 119 GM BTL PO SCH ×3 (09:50→21:01)
--- NOTE | 2017-06-05 10:15 | PN ---
Progress Note (short form) - Note Progress Note: PULMONARY/MED s/p liver biopsy yesterday. No nausea, vomiting or abdominal pain. Denies shortness of breath or chest pain. No fevers or chills. Tolerating PO. Last Vital Signs Temp Pulse Resp BP Pulse Ox 97.6 F 60 20 116/59 97 06/05/17 06:47 06/05/17 06:47 06/05/17 06:47 06/05/17 06:47 06/04/17 21:00 Gen: NAD at rest Heart: RRR Lung: decreased breath sounds at the bases Abd: soft, nontender Ext: trace edema CBC, BMP 06/05/17 06:00 06/05/17 06:00 Hepatic Panel Total Bilirubin 2.5 mg/dL (0.2-1.0) H 06/04/17 06:45 Direct Bilirubin 2.0 mg/dL (0.0-0.2) H 06/04/17 06:45 AST 42 U/L (15-37) H 06/04/17 06:45 ALT 92 U/L (12-78) H 06/04/17 06:45 Alkaline Phosphatase 313 U/L (45-117) H 06/04/17 06:45 Albumin 2.5 g/dl (3.4-5.0) L 06/04/17 06:45 Active Medications Folic Acid (Folic Acid -) 1 mg PO DAILY [facility] Last Admin: 06/05/17 09:47 Dose: 1 mg Pantoprazole Sodium (Protonix -) 40 mg PO DAILY [facility] Last Admin: 06/05/17 09:47 Dose: 40 mg Polyethylene Glycol (Miralax (For Daily Use) -) 17 gm PO BID [facility] Last Admin: 06/05/17 09:50 Dose: Not Given Prednisone (Deltasone -) 40 mg PO DAILY@0800 [facility] Last Admin: 06/05/17 08:47 Dose: 40 mg A/P Autoimmune Hemolytic Anemia Jaundice/Cholestasis Elevated LFTs - continue prednisone per heme - monitor H/H - f/u BM and liver biopsies - monitor LFTs - PO as tolerated - DVT prophylaxis
--- NOTE | 2017-06-05 10:20 | PN ---
Progress Note (short form) - Note Progress Note: Patient seen and examined. Events reviewed. Notes/labs/meds reviewed Labs improving. s/p liver biopsy O/E: general : in No acute distress HEENT: NCAT, no scleral icterus Cor: RRR Lungs: CTA b/l Extremities: mild pitting edema bilateral noted Neuro: AAOX3 Last Vital Signs Temp Pulse Resp BP Pulse Ox 97.6 F 60 20 116/59 97 06/05/17 06:47 06/05/17 06:47 06/05/17 06:47 06/05/17 06:47 06/04/17 21:00 CBC, BMP 06/05/17 06:00 06/05/17 06:00 Current Medications Generic Name Dose Route Start Last Admin Trade Name Cliffq PRN Reason Stop Dose Admin Folic Acid 1 mg 05/27/17 12:00 06/05/17 09:47 Folic Acid - PO 1 mg DAILY JANE Administration Pantoprazole Sodium 40 mg 06/03/17 10:00 06/05/17 09:47 Protonix - PO 40 mg DAILY JANE Administration Polyethylene Glycol 17 gm 05/30/17 22:00 06/05/17 09:50 Miralax (For Daily Use) - PO Not Given BID JANE Prednisone 40 mg 06/03/17 08:00 06/05/17 08:47 Deltasone - PO 40 mg DAILY@0800 JANE Administration 82 y/o patient with painless jaundice/hyperbilirubinemia and 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 LFTS improved bmbx results: FISH and flow negative. will need to await for the core s/p liver biopsy
--- NOTE | 2017-06-05 13:10 | PN ---
GI Progress Note Subjective: No acute events States "feeling like her old self" No abdominal pain s/p liver bx - Objective Vital Signs: Vital Signs Temperature 97.8 F 06/05/17 10:00 Pulse Rate 70 06/05/17 10:00 Respiratory Rate 16 06/05/17 10:00 Blood Pressure 106/56 06/05/17 10:00 O2 Sat by Pulse Oximetry (%) 97 06/04/17 21:00 Constitutional: Calm Eyes: No: Sclera Icterus Cardiovascular: Yes: Regular Rate and Rhythm Respiratory: Yes: CTA Bilaterally Gastrointestinal Inspection: No: Distention ...Auscultate: Yes: Normoactive Bowel Sounds ...Palpate: No: Hepatomegaly, Tenderness Edema: Yes Edema: LLE: 1+, RLE: 1+ Neurological: Yes: Alert, Oriented Labs: CBC, BMP 06/05/17 06:00 06/05/17 06:00 INR, PTT INR 1.05 (0.82-1.09) 06/02/17 06:00 Hepatic Panel Total Bilirubin 2.5 mg/dL (0.2-1.0) H 06/04/17 06:45 Direct Bilirubin 2.0 mg/dL (0.0-0.2) H 06/04/17 06:45 AST 42 U/L (15-37) H 06/04/17 06:45 ALT 92 U/L (12-78) H 06/04/17 06:45 Alkaline Phosphatase 313 U/L (45-117) H 06/04/17 06:45 Albumin 2.5 g/dl (3.4-5.0) L 06/04/17 06:45 Problem List - Problems (1) Elevated LFTs Assessment/Plan: Mixed hepatocellular / cholestatic liver dysfunction: Unclear etiology at this time but clinically Ms. Funk much improved. LFT's improving (however were improving prior to initiation of prednisone) Awaiting liver biopsy results Avoid hepatotoxic agents Monitor LFTs Code(s): R79.89 - OTHER SPECIFIED ABNORMAL FINDINGS OF BLOOD CHEMISTRY
[2017-06-06 08:31] LABS: ALBUMIN 2.8 g/dl (3.4-5.0); ANION GAP 6 (8-16); BASO % 0.6 % (0-2.0); BILIRUBIN,DIRECT 1.9 mg/dL (0.0-0.2); BLOOD UREA NITROGEN 14 mg/dL (7-18); CALCIUM 8.2 mg/dL (8.5-10.1); CHLORIDE 103 mmol/L (98-107); CO2 29 mmol/L (21-32); CREATININE 0.5 mg/dL (0.55-1.02); EOS % 4.2 % (0-4.5); GLUCOSE,RANDOM 69 mg/dL (74-106); HEMOGLOBIN 11.3 GM/dL (10.7-15.3); LYMPH % 24.2 % (8-40); MAGNESIUM 2.2 mg/dL (1.8-2.4); MCH 35.7 pg (25.7-33.7); MCHC 33.2 g/dl (32.0-36.0); MEAN CELL VOLUME 107.4 fl (80-96); MEAN PLT VOLUME 7.8 fl (7.5-11.1); MONO % 8.1 % (3.8-10.2); NEUT % 62.9 % (42.8-82.8); PHOSPHOROUS 2.9 mg/dL (2.5-4.9); PLATELET COUNT 422 K/MM3 (134-434); POTASSIUM 3.7 mmol/L (3.5-5.1); RBC 3.16 M/mm3 (3.60-5.2); RDW 18.6 % (11.6-15.6); SGOT/AST 31 U/L (15-37); SGPT/ALT 72 U/L (12-78); SODIUM 138 mmol/L (136-145); WHITE BLOOD COUNT 8.6 K/mm3 (4.0-10.0)
[2017-06-06 08:34] LABS: ALK PHOS 270 U/L (45-117); BILIRUBIN,TOTAL 2.5 mg/dL (0.2-1.0); TOT PROT 7.5 g/dl (6.4-8.2)
[2017-06-06] MEDS: POLYETHYLENE GLYCOL 3350 119 GM BTL PO SCH (09:27)
[2017-06-06] MEDS: predniSONE 20 MG TABLET (UD) PO SCH (09:27)
[2017-06-06] MEDS: PANTOPRAZOLE 40 MG TABLET (FP) PO SCH (09:27)
[2017-06-06] MEDS: FOLIC ACID 1 MG TABLET (FP) PO SCH (09:28)
--- NOTE | 2017-06-06 10:49 | PN ---
Progress Note (short form) - Note Progress Note: Patient seen and examined. Events reviewed. Notes/labs/meds reviewed Labs noted she feels back to baseline. s/p liver biopsy O/E: general : in No acute distress HEENT: NCAT, no scleral icterus Cor: RRR Lungs: CTA b/l Extremities: mild pitting edema bilateral noted Neuro: AAOX3 Last Vital Signs Temp Pulse Resp BP Pulse Ox 97.8 F 66 20 123/59 97 06/06/17 06:39 06/06/17 06:39 06/06/17 06:39 06/06/17 06:39 06/05/17 21:00 CBC, BMP 06/06/17 06:30 06/06/17 06:30 Current Medications Generic Name Dose Route Start Last Admin Trade Name Freq PRN Reason Stop Dose Admin Folic Acid 1 mg 05/27/17 12:00 06/06/17 09:28 Folic Acid - PO 1 mg DAILY JANE Administration Pantoprazole Sodium 40 mg 06/03/17 10:00 06/06/17 09:27 Protonix - PO 40 mg DAILY JANE Administration Polyethylene Glycol 17 gm 05/30/17 22:00 06/06/17 09:27 Miralax (For Daily Use) - PO 17 gm BID JANE Administration Prednisone 40 mg 06/03/17 08:00 06/06/17 09:27 Deltasone - PO 40 mg DAILY@0800 JANE Administration 82 y/o patient with painless jaundice/hyperbilirubinemia and autoimmune hemolytic anemia. autoimmune hemolytic anemia-- warm and cold, polyclonal gammopathy, -CJ pending bone marrow biopsy/ liver biopsy d/c on prednisone 40mg , will taper as an out pt. OP f/u in office given on 06/11. will f/u on bone marrow biopsy as an OP lab parameters normalized. d.w pt
--- NOTE | 2017-06-06 12:06 | PN ---
Progress Note (short form) - Note Progress Note: MEDICAL ATTENDING MUCH IMPROVED VSS/AFEBRILE ANICTERIC CLEAR LUNG GREENE S1S2 BS+ SOFT NONTENDER NEGATIVE HEPATOSPLENOMEGALY NO EDEMA LABS/MEDS/NOTES/IMAGES GI /HEME EVAL APPRECIATED ON PREDNISONE PER HEME LIVER BX PENDING DISCHARGE PLANNING Halley AGUILA MD Problem List - Problems (1) Jaundice Code(s): R17 - UNSPECIFIED JAUNDICE (2) Elevated bilirubin Code(s): R17 - UNSPECIFIED JAUNDICE (3) Weakness Code(s): R53.1 - WEAKNESS (4) Anorexia Code(s): R63.0 - ANOREXIA (5) Weight loss Code(s): R63.4 - ABNORMAL WEIGHT LOSS
--- NOTE | 2017-06-06 13:54 | PATH ---
Surgical Pathology Report Patient Name: RICO GARNETT Med. Rec. #: [id number] /Age/Gender: 1935 (Age: 82) / F Account: [id number] Location: [facility] MED/SURG Taken: 06/04/2017 Received: 06/04/2017 Reported: 06/06/2017 Physicians: Ela Ceja M.D. Smitha Mellacheruvu, M.D. Specimen(s) Received LIVER BIOPSY Clinical History 82 year old female with history of choledocholithiasis status post ERCP however with persistent jaundice and increased bilirubin Final Diagnosis LIVER, CORE BIOPSY: MIXED PORTAL INFLAMMATION WITH ASSOCIATED BILE DUCT INJURY, FOCAL CHOLESTASIS, AND PERIPORTAL DUCTULAR REACTION, SEE COMMENT. PERIVENULAR HEPATOCELLULAR NECROSIS, SEE COMMENT. MINIMAL PATCHY STEATOSIS (10%). EXTRAMEDULLARY HEMATOPOIESIS IS PRESENT. TRICHROME STAIN SHOWS MILD PERIPORTAL FIBROSIS AND HIGHLIGHTS PARENCHYMAL COLLAPSE AROUND CENTRAL VEINS. RETICULIN STAIN SHOWS AN INTACT SINUSOIDAL ARCHITECTURE. IRON STAIN SHOWS SIDEROSIS IN KUPFFER CELLS ONLY, SUGGESTIVE OF SECONDARY IRON OVERLOAD. PAS WITH DIASTASE STAIN IS NEGATIVE FOR ALPHA-1 ANTITRYPSIN GLOBULES. NEGATIVE FOR GRANULOMAS OR MALIGNANCY. Comment: This case has been seen in consultation by Dr. Nery Etienne at [facility] in [place], [place] where the above diagnosis was rendered. Her consultative report contains the following comment. "The biopsy shows portal tracts with mixed inflammatory infiltrates, focal associated bile duct injury, periductular reaction (confirmed on immunostain for CK7), and focal cholestasis. No florid duct lesions or granulomas are present. No significant interface inflammatory activity is present. The differential diagnosis includes large bile duct obstruction, drug/toxin induced injury, and other bile duct diseases. The status of anti-mitochondrial antibody is unknown. Florid duct lesions that are typical of primary biliary cholangitis may be patchy and missed on small biopsy samples; therefore, a diagnosis of primary biliary cholangitis cannot be histologically excluded. Clinical correlation with antimitochondrial antibody levels is recommended. Hepatocyte necrosis around central veins is also present. Few plasma cells are noted in the inflammation, but overall plasma cells are not significantly increased. The findings may be related to venous outflow obstruction, congestive heart failure, drug/toxin induced injury or an immune mediated process. Extramedullary hematopoiesis is also present, which may be seen in association with congestive heart failure, myeloproliferative disorders, and other bone marrow diseases. Clinical and laboratory correlation recommended." Also see bone marrow biopsy report [id number]. Electronically Signed Larry Barcenas M.D. Gross Description Received in formalin labeled "liver tissue," are 3 alcala, cylindrical portions of soft tissue ranging from 1.1-1.7 cm in length and averaging 0.1 cm in diameter. The specimens are submitted in total in one cassette. 06/04/201706/04/2017
--- NOTE | 2017-06-06 14:06 | PN ---
GI Progress Note Subjective: GI NOte: Jordana has no GI complaints. I discussed the liver biopsy with Dr. Barcenas. There are cholestatic changes in the liver. He cannot exclude primary biliary cirrhosis and is sending the tissue out for more studies. He has given approval for a mitochondrial antibody which I will order. Her antismooth muscle antibody is positive supporting an autoimmune hepatic process. I explained these results to Jordana who will followup with me in the office.Her lack of pruritus and her relatively mild alkaline phosphatase elevation argue against PBC however. An iron stain to exclude hemochromatosis is also pending. - Objective Vital Signs: Vital Signs Temperature 97.9 F 06/06/17 10:00 Pulse Rate 72 06/06/17 10:00 Respiratory Rate 18 06/06/17 10:00 Blood Pressure 108/62 06/06/17 10:00 O2 Sat by Pulse Oximetry (%) 97 06/05/17 21:00 Laboratory Tests 06/02/17 06/06/17 06/06/17 06:00 06:30 06:30 Hgb 11.3 Total Bilirubin 2.5 H Direct Bilirubin 1.9 H AST 31 ALT 72 Alkaline Phosphatase 409 H 270 H Albumin 2.8 L Constitutional: No Distress ...Auscultate: Yes: Normoactive Bowel Sounds ...Palpate: Yes: Soft, Other (nontender) Labs: CBC, BMP 06/06/17 06:30 06/06/17 06:30 INR, PTT INR 1.05 (0.82-1.09) 06/02/17 06:00 Problem List - Problems (1) Jaundice Assessment/Plan: Cholestatic liver process likely autoimmune and less likely hemachromatosis. We discussed the need to follow up in our office. Code(s): R17 - UNSPECIFIED JAUNDICE (2) Abdominal pain Code(s): R10.9 - UNSPECIFIED ABDOMINAL PAIN Qualifiers: Abdominal location: generalized Qualified Code(s): R10.84 - Generalized abdominal pain (3) Weight loss Code(s): R63.4 - ABNORMAL WEIGHT LOSS (4) Anorexia Code(s): R63.0 - ANOREXIA (5) Weakness Code(s): R53.1 - WEAKNESS
--- NOTE | 2017-06-06 17:35 | PATH ---
Surgical Pathology Report Patient Name: RICO GARNETT [facility]. Rec. #: [id number] /Age/Gender: 1935 (Age: 82) / F Account: [id number] Location: [facility] MED/SURG Taken: 05/30/2017 Received: 05/30/2017 Reported: 06/06/2017 Physicians: Med Nagy M.D. Specimen(s) Received A: BONE MARROW BIOPSY B: BONE MARROW ASPIRATION SMEARS C: BONE MARROW BLOOD Clinical History New hemolytic anemia, rule out lymphoproliferative disorder Final Diagnosis A & B. BONE MARROW, CORE BIOPSY, CLOT SECTION, AND ASPIRATE SMEARS: HYPERCELLULAR BONE MARROW WITH MATURING TRILINEAGE HEMATOPOIESIS. MILD ERYTHROID HYPERPLASIA WITH FOCAL DYSPOIESIS. MILD MEGAKARYOCYTOSIS. NO EVIDENCE OF INVOLVEMENT BY B-CELL LYMPHOMA. NO EVIDENCE OF OVERT DYSPLASIA. POLYTYPIC PLASMACYTOSIS. SEE COMMENT. 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 Flow cytometry immunophenotyping, performed on a concurrent sample ([id number]) did not detect clonal plasma or B-cell populations. Mild polytypic plasmacytosis was noted. Correlation with relevant clinical and laboratory data is essential. Although no overt or advanced myelodysplastic changes are evident, these results should be correlated with cytogenetic studies for complete diagnostic interpretation. Evolving low grade myelodysplastic process cannot be completely ruled out. This case was sent to Dr. Nicolas Anthony from [facility] [place], [place] ([id number]) the diagnosis above reflects his opinion. C. ADDITIONAL STUDIES COMPREHENSIVE FLOW PANEL performed and interpreted at [facility] [place], [place] ([id number]) shows the following: INTERPRETATION: There is no evidence for abnormal myeloid maturation or an increased blast population. There is no evidence for a lymphoproliferative disorder or plasma cell dyscrasia. Polytypic plasmacytosis. MYELODYSPLASIA FISH PANEL performed and interpreted at [facility] [place], [place] ([id number]) shows the following: INTERPRETATION: No evidence of deletion 5q or monosomy 5 is present. No evidence of deletion 7q or monosomy 7 is present. No evidence of trisomy 8 (+8) is present. No evidence of deletion 13q14 is present. No evidence of rearrangement of 11q23. No evidence of a deletion of the p53 (17p13) locus. No evidence of deletion 20q12 is present See [facility] reports ([id number], [id number] and [id number]) for additional details. Cytogenetics pending and will be reported separately. Electronically Signed Vivian Sena M.D. Addendum Reported: 06/10/2017 Addendum Diagnosis CYTOGENETIC KARYOTYPE ANALYSIS performed and interpreted at [facility] ([id number]) shows the following: RESULTS: 46,XX [20] INTERPRETATION: Normal Karyotype JAK2 (V617F) MUTATION ANALYSIS BY PCR performed and interpreted at [place], [place] ([id number]) shows the following: RESULTS: Only the wild-type JAK2 sequence was detected. INTERPRETATION: Negative for JAK2 (V617F) Mutation. See [facility] report ([id number] and [id number]) for additional details. Vivian Sena M.D. Addendum Reported: 06/11/2017 Addendum Diagnosis CALRETICULIN (CALR) Mutation Analysis by PCR performed and interpreted at [place], [place] ([id number]). RESULTS: No mutation was detected in exon 9 of the calreticulin gene by PCR fragment analysis. INTERPRETATION: CALR MUTATION (exon 9): NOT DETECTED See [facility] report for details ([id number]). Vivian Sena M.D. Gross Description A. Received in formalin labeled with the patient's name and indicated on the requisition to be a bone marrow biopsy, is a 1.7 cm in length x 0.1 cm in diameter alcala, cylindrical portion of bone. Also received within the same container is a 1.5 cm in length x 1.5 cm in diameter red-brown, cylindrical blood clot. The blood clot is sectioned and the specimen is entirely submitted in 2 cassettes as follows: 1-bone, following decalcification; 2-blood clot. B. Received are 4 bone marrow aspiration smear slides. C. Received are 2 green top tubes and one lavender top tube of bone marrow blood which are sent to [facility]. 06/02/201706/02/2017
--- NOTE | 2017-06-06 18:02 | PN ---
Progress Note (short form) - Note Progress Note: MEDICAL ATTENDING I HAVE TRANSFERRED THE CARE OF THIS PATIENT TO THE HOSPITALIST SERVICE BEGINNING 06/07/2017. BAY AGUILA MD Problem List - Problems (1) Jaundice Code(s): R17 - UNSPECIFIED JAUNDICE (2) Elevated bilirubin Code(s): R17 - UNSPECIFIED JAUNDICE (3) Weakness Code(s): R53.1 - WEAKNESS (4) Anorexia Code(s): R63.0 - ANOREXIA (5) Weight loss Code(s): R63.4 - ABNORMAL WEIGHT LOSS
[2017-06-07 07:55] LABS: BASO % 1.3 % (0-2.0); EOS % 5.4 % (0-4.5); HEMATOCRIT 33.8 % (32.4-45.2); HEMOGLOBIN 11.1 GM/dL (10.7-15.3); LYMPH % 26.5 % (8-40); MCH 35.2 pg (25.7-33.7); MCHC 32.9 g/dl (32.0-36.0); MEAN CELL VOLUME 107.2 fl (80-96); MEAN PLT VOLUME 7.8 fl (7.5-11.1); MONO % 8.4 % (3.8-10.2); NEUT % 58.4 % (42.8-82.8); PLATELET COUNT 430 K/MM3 (134-434); RBC 3.16 M/mm3 (3.60-5.2); RDW 18.4 % (11.6-15.6); RETICULOCYTES 2.01 % (0.5-1.5); WHITE BLOOD COUNT 7.5 K/mm3 (4.0-10.0)
[2017-06-07 08:38] LABS: ALBUMIN 2.7 g/dl (3.4-5.0); ANION GAP 5 (8-16); BILIRUBIN,DIRECT 1.7 mg/dL (0.0-0.2); BILIRUBIN,TOTAL 2.1 mg/dL (0.2-1.0); BLOOD UREA NITROGEN 14 mg/dL (7-18); CALCIUM 8.6 mg/dL (8.5-10.1); CHLORIDE 105 mmol/L (98-107); CO2 29 mmol/L (21-32); CREATININE 0.6 mg/dL (0.55-1.02); GLUCOSE,RANDOM 77 mg/dL (74-106); LDH 255 U/L (84-246); POTASSIUM 3.8 mmol/L (3.5-5.1); SGOT/AST 30 U/L (15-37); SGPT/ALT 67 U/L (12-78); SODIUM 139 mmol/L (136-145); TOT PROT 7.4 g/dl (6.4-8.2)
[2017-06-07 08:39] LABS: ALK PHOS 241 U/L (45-117)
[2017-06-07] MEDS: predniSONE 20 MG TABLET (UD) PO SCH (09:56)
[2017-06-07] MEDS: FOLIC ACID 1 MG TABLET (FP) PO SCH (09:56)
[2017-06-07] MEDS: POLYETHYLENE GLYCOL 3350 119 GM BTL PO SCH (09:56)
[2017-06-07] MEDS: PANTOPRAZOLE 40 MG TABLET (FP) PO SCH (09:56)
--- NOTE | 2017-06-07 14:51 | PN ---
Physical Exam: SUBJECTIVE: Patient seen and examined at bedside. States she feels "much better. " Requesting discharge in the morning. OBJECTIVE: Vital Signs Period Temp Pulse Resp BP Sys/Morales Pulse Ox Last 24 Hr 97.4 F-98.2 F 64-86 18-20 108-134/52-70 95-97 GENERAL: The patient is awake, alert, and fully oriented, in no acute distress. LUNGS: CTAB HEART: Irregular rate and rhythm, S1, S2 with 4/6 holosystolic murmur. ABDOMEN: SNTND. +BS EXTREMITIES: 2+ pulses, warm, well-perfused, no edema. NEUROLOGICAL: Cranial nerves II through XII grossly intact. Normal speech, gait not observed. PSYCH: Normal mood, normal affect. Laboratory Results - last 24 hr 06/07/17 06/07/17 06:53 06:53 WBC 7.5 RBC 3.16 L Hgb 11.1 Hct 33.8 MCV 107.2 H MCH 35.2 H MCHC 32.9 RDW 18.4 H Plt Count 430 MPV 7.8 Neutrophils % 58.4 Lymphocytes % 26.5 Monocytes % 8.4 Eosinophils % 5.4 H Basophils % 1.3 Retic Count 2.01 H D Sodium 139 Potassium 3.8 Chloride 105 Carbon Dioxide 29 Anion Gap 5 L BUN 14 Creatinine 0.6 Random Glucose 77 Calcium 8.6 Total Bilirubin 2.1 H Direct Bilirubin 1.7 H AST 30 ALT 67 Alkaline Phosphatase 241 H LD Total 255 H C-Reactive Protein 0.3 Total Protein 7.4 Albumin 2.7 L Active Medications Generic Name Dose Route Start Last Admin Trade Name Tr PRN Reason Stop Dose Admin Folic Acid 1 mg 05/27/17 12:00 06/07/17 09:56 Folic Acid - PO 1 mg DAILY JANE Administration Pantoprazole Sodium 40 mg 06/03/17 10:00 06/07/17 09:56 Protonix - PO 40 mg DAILY JANE Administration Polyethylene Glycol 17 gm 06/07/17 10:00 06/07/17 09:56 Miralax (For Daily Use) - PO 17 gm DAILY JANE Administration Prednisone 40 mg 06/03/17 08:00 06/07/17 09:56 Deltasone - PO 40 mg DAILY@0800 JANE Administration ASSESSMENT/PLAN: A: 82 yo woman without PMH with painless jaundice P: Painless jaundice Elevated bilirubin - Alk phos downtrending - Bili downtrending - Liver biopsy results pending - Bone marrow biopsy pending - continue steroids Anorexia - tolerating PO's without difficulty - Increased appetite Dispo- discharge in morning Visit type - Emergency Visit Emergency Visit: Yes ED Registration Date: 05/24/17 Care time: The patient presented to the Emergency Department on the above date and was hospitalized for further evaluation of their emergent condition. - New Patient This patient is new to me today: Yes Date on this admission: 06/07/17 - Critical Care Critical Care patient: No
--- NOTE | 2017-06-07 19:11 | PN ---
Progress Note (short form) - Note Progress Note: Seen in follow up. No new complaints, no events noted over past 24 hours. Meds reviewed. Current Medications Generic Name Dose Route Start Last Admin Trade Name Tr PRN Reason Stop Dose Admin Folic Acid 1 mg 05/27/17 12:00 06/07/17 09:56 Folic Acid - PO 1 mg DAILY JANE Administration Pantoprazole Sodium 40 mg 06/03/17 10:00 06/07/17 09:56 Protonix - PO 40 mg DAILY JANE Administration Polyethylene Glycol 17 gm 06/07/17 10:00 06/07/17 09:56 Miralax (For Daily Use) - PO 17 gm DAILY JANE Administration Prednisone 40 mg 06/03/17 08:00 06/07/17 09:56 Deltasone - PO 40 mg DAILY@0800 JANE Administration General: In no acute distress. Extremities: No pallor, no icterus, RLE extensive swelling Chest:good air entry bilaterally, clear. . Abdomen: Soft, no organomegaly, no masses. Neuro: Alert and oriented, non-focal. CVS: Normal sinus rhythm, S1, S2, no gallop or murmur. Assessment. Autoimmune hemolysis, responded to steroids. Currently PDN 40 mgs daily. Marked macrocytosis - ?agglutination. Bone marrow biopsy performed - pathology report pending. No need for inpatient care from hematological point of view - can follow up as outpatient with hematology for results of biopsy, and ongoing tapering of steroids.
--- NOTE | 2017-06-08 08:07 | DS ---
Physical Exam: SUBJECTIVE: Patient seen and examined OBJECTIVE: Vital Signs Period Temp Pulse Resp BP Sys/Morales Pulse Ox Last 24 Hr 97.6 F-98.1 F 68-86 20-20 108-133/50-84 97-98 PHYSICAL EXAM GENERAL: The patient is awake, alert, and fully oriented, in no acute distress. HEAD: Normal with no signs of trauma. EYES: PERRL, extraocular movements intact, sclera anicteric, conjunctiva clear. ENT: Ears normal, nares patent, oropharynx clear without exudates, moist mucous membranes. NECK: Trachea midline, full range of motion, supple. LUNGS: Breath sounds equal, clear to auscultation bilaterally, no wheezes, no crackles, no accessory muscle use. HEART: Regular rate and rhythm, S1, S2 without murmur, rub or gallop. ABDOMEN: Soft, nontender, nondistended, normoactive bowel sounds, no guarding, no rebound, no hepatosplenomegaly, no masses. EXTREMITIES: 2+ pulses, warm, well-perfused, no edema. NEUROLOGICAL: Cranial nerves II through XII grossly intact. Normal speech, gait not observed. PSYCH: Normal mood, normal affect. SKIN: Warm, dry, normal turgor, no rashes or lesions noted. LABS Laboratory Results - last 24 hr 06/07/17 06/07/17 06:53 06:53 WBC 7.5 RBC 3.16 L Hgb 11.1 Hct 33.8 MCV 107.2 H MCH 35.2 H MCHC 32.9 RDW 18.4 H Plt Count 430 MPV 7.8 Neutrophils % 58.4 Lymphocytes % 26.5 Monocytes % 8.4 Eosinophils % 5.4 H Basophils % 1.3 Retic Count 2.01 H D Sodium 139 Potassium 3.8 Chloride 105 Carbon Dioxide 29 Anion Gap 5 L BUN 14 Creatinine 0.6 Random Glucose 77 Calcium 8.6 Total Bilirubin 2.1 H Direct Bilirubin 1.7 H AST 30 ALT 67 Alkaline Phosphatase 241 H LD Total 255 H C-Reactive Protein 0.3 Total Protein 7.4 Albumin 2.7 L HOSPITAL COURSE: Date of Admission:05/24/17 Date of Discharge: 06/08/17 Minutes to complete discharge: 42 Discharge Summary Reason For Visit: HIGH BILIRUBIN, WEAKNESS Current Active Problems Abdominal pain (Acute) Anorexia (Acute) Elevated LFTs (Acute) Fever, unknown origin (Acute) Hemolysis (Acute) Jaundice (Acute) Macrocytic anemia (Acute) Weakness (Acute) Weight loss (Acute) Hospital Course: 82-year-old female with no past medical history was sent to ER by PMD for evaluation of elevated bilirubin, jaundice, and generalized weakness over the past week. Patient has had no other complaints at this time including chest pain , shortness of breath, fever, change in bowel pattern, change in urine pattern, increased bruising, or abdominal pain. Painless jaundice Elevated bilirubin - Alk phos downtrending - Bili downtrending - Liver biopsy results pending - Bone marrow biopsy pending - f/u with heme/onc as scheduled - continue steroids Anorexia - tolerating PO's without difficulty - Increased appetite Condition: Improved - Instructions Diet, Activity, Other Instructions: Final biopsy results are pending. Call Dr. Bansal for an appointment to follow up on liver biopsy results. Call Dr. Terry for an appointment on 06/11. Take prednisone 40mg every day until Dr. Terry directs you otherwise. Take Folic acid 1mg daily. This is an jqxg-pot-dumexgm medication that does not require a prescription. Resume all usual activity. Eat a well balanced diet. Avoid alcoholic beverages. Thank you very much for choosing us to provide your healthcare needs. Referrals: Vinicio Bansal MD [Staff Physician] - Radha Terry MD [Staff Physician] - Med Nagy MD [Primary Care Provider] - Disposition: HOME - Home Medications Comprehensive Discharge Medication List: Ambulatory Orders Multivitamins [Multivit ([facility] Formulary)] 1 tab PO DAILY 05/24/17 Folic Acid - 1 mg PO DAILY #0 tablet 06/08/17 Pantoprazole Sodium [Protonix -] 40 mg PO DAILY #30 tablet.ec 06/08/17 predniSONE [Deltasone -] 40 mg PO DAILY@0800 #10 tablet 06/08/17 This patient is new to me today: No Emergency Visit: Yes ED Registration Date: 05/24/17 Care time: The patient presented to the Emergency Department on the above date and was hospitalized for further evaluation of their emergent condition. Critical Care patient: No - Discharge Referral Referred to [facility] No
[2017-06-08] MEDS: predniSONE 20 MG TABLET (UD) PO SCH (08:16)
[2017-06-08] MEDS: FOLIC ACID 1 MG TABLET (FP) PO SCH (09:46)
[2017-06-08] MEDS: PANTOPRAZOLE 40 MG TABLET (FP) PO SCH (09:46)
[2017-06-08] MEDS: POLYETHYLENE GLYCOL 3350 119 GM BTL PO SCH (09:46)
[2017-06-08 10:33] VITALS: BP 128/58; PULSE 70; TEMP 97.9
== END 2017-06-08 10:17 | disposition home or self-care (01) | DRG 445 ==
LOC: JER 09:34 → JERBED 12:47 → J8W 15:50
PROVIDERS: ADMIT Specialist; ATTEND Nurse Practitioner Family
PROC: 07DR3ZX Extraction of Iliac Bone Marrow, Percutaneous Approach, Diagnostic (ICD-10-PCS; 2017-05-24)
PROC: 30233N1 Transfusion of Nonautologous Red Blood Cells into Peripheral Vein, Percutaneous Approach (ICD-10-PCS; 2017-05-27)
PROC: BF10YZZ Fluoroscopy of Bile Ducts using Other Contrast (ICD-10-PCS; 2017-05-28)
PROC: 0FC98ZZ Extirpation of Matter from Common Bile Duct, Via Natural or Artificial Opening Endoscopic (ICD-10-PCS; principal; 2017-05-28 11:15)
PROC: 0FB03ZX Excision of Liver, Percutaneous Approach, Diagnostic (ICD-10-PCS; 2017-06-04)
DX: K80.51 Calculus of bile duct without cholangitis or cholecystitis with obstruction (principal); D59.1 Other autoimmune hemolytic anemias; D64.9 Anemia, unspecified; R63.0 Anorexia; Z68.24 Body mass index [BMI] 24.0-24.9, adult; R53.1 Weakness; R10.9 Unspecified abdominal pain; R50.9 Fever, unspecified; D89.0 Polyclonal hypergammaglobulinemia
CPT/HCPCS: 36415; 36430; 71046-TC-FY; 74176-TC; 74182-TC; 76000-TC-FY; 76705-TC; 76942-TC; 80048; 80053; 80076; 81003; 81015; 82105; 82150; 82248; 82607; 82728; 82746; 82784; 82787; 83010; 83516; 83540; 83550; 83615; 83690; 83735; 84100; 84155; 84156; 84157; 84165; 84439; 84443; 85025; 85027; 85044; 85610; 85651; 85730; 86038; 86140; 86157; 86301; 86334; 86376; 86704; 86706; 86708; 86803; 86850; 86870; 86880; 86900; 86901; 86902; 86922; 87040; 87086; 87116; 87206; 87340; 87899; 88300-TC; 88305-TC; 88311-TC; 88313-TC; 93005; 93010; 93976; 99283-25; J1100; J7030; P9054

== ENCOUNTER 2017-11-24 09:15 | Emergency (ER) | payer OTHER, MEDICARE ==
[2017-11-24 09:24] VITALS: BMI 23.2
[2017-11-24 10:47] LABS: BASO % 0.7 % (0-2.0); EOS % 1.6 % (0-4.5); HEMATOCRIT 38.8 % (32.4-45.2); HEMOGLOBIN 13.1 GM/dL (10.7-15.3); LYMPH % 19.1 % (8-40); MCH 31.9 pg (25.7-33.7); MCHC 33.8 g/dl (32.0-36.0); MEAN CELL VOLUME 94.4 fl (80-96); MEAN PLT VOLUME 7.6 fl (7.5-11.1); MONO % 7.6 % (3.8-10.2); PLATELET COUNT 306 K/MM3 (134-434); WHITE BLOOD COUNT 8.8 K/mm3 (4.0-10.0)
[2017-11-24 10:59] LABS: PROTHROMBIN TIME (PATIENT) 11.3 SEC (9.7-13.0)
[2017-11-24 11:17] LABS: ALBUMIN 3.8 g/dl (3.4-5.0); ANION GAP 8 (8-16); BILIRUBIN,TOTAL 0.7 mg/dL (0.2-1.0); BLOOD UREA NITROGEN 33 mg/dL (7-18); CALCIUM 9.3 mg/dL (8.5-10.1); CHLORIDE 106 mmol/L (98-107); CO2 28 mmol/L (21-32); CREATININE 0.7 mg/dL (0.55-1.02); GLUCOSE,RANDOM 72 mg/dL (74-106); MAGNESIUM 2.5 mg/dL (1.8-2.4); POTASSIUM 4.8 mmol/L (3.5-5.1); SGOT/AST 12 U/L (15-37); SGPT/ALT 29 U/L (12-78); SODIUM 142 mmol/L (136-145)
[2017-11-24 11:20] LABS: ALK PHOS 85 U/L (45-117)
--- NOTE | 2017-11-24 11:23 | PDOC ---
History of Present Illness - General Chief Complaint: Shortness of Breath Stated Complaint: SENT BY PCP Time Seen by Provider: 11/24/17 09:27 History Source: Patient Exam Limitations: No Limitations - History of Present Illness Initial Comments: 11/24/17 10:33 82-year-old female presents to the emergency room with complaints of feeling as if something is in her throat intermittently since Friday after eating ice cream was contained no nuts or toppings. Patient states also has had a mild intermittent in irritating/productive cough which she describes as a whitish phlegm. Patient also states for the past 2 days has had intermittent lower substernal chest pressure without associated symptoms. Patient states she is afraid to eat solids since Friday but continues to drink water. 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 Timing/Duration: reports: other (4 days ago) Severity: reports: moderate Possible Cause: Yes: no prior episodes Modifying Factors: improves with: other Associated Symptoms: reports: chest pain/soreness, shortness of breath, other ( feeling of something in throat) Past History - Travel Traveled outside of the country in the last 30 days: No - Past Medical History Allergies/Adverse Reactions: Allergies Allergy/AdvReac Type Severity Reaction Status Date / Time No Known Allergies Allergy Verified 11/24/17 09:19 Home Medications: Ambulatory Orders Aspirin [ASA -] 81 mg PO DAILY 11/24/17 Calcium Carbonate [Calcium] 600 mg PO DAILY 11/24/17 Pantoprazole Sodium 40 mg PO DAILY 11/24/17 Prednisone 5 mg PO BID 11/24/17 Anemia: Yes COPD: No Other medical history: SPINAL STENOSIS - Suicide/Smoking/Psychosocial Hx Smoking History: Never smoked Have you smoked in the past 12 months: No Hx Alcohol Use: Yes (once a week wine) Drug/Substance Use Hx: No Substance Use Type: None Hx Substance Use Treatment: No Patient Lives Alone: Yes Lives with/in: lives alone Review of Systems - Review of Systems Able to Perform ROS?: No Constitutional: No: Symptoms Reported HEENTM: Yes: Difficulty Swallowing Respiratory: Yes: Cough, Shortness of Breath Cardiac (ROS): Yes: Chest Pain ABD/GI: No: Symptoms Reported Musculoskeletal: No: Symptoms Reported Integumentary: No: Symptoms Reported Neurological: No: Symptoms reported *Physical Exam - Vital Signs Last Vital Signs Temp Pulse Resp BP Pulse Ox 97.9 F 85 17 140/89 99 11/24/17 09:19 11/24/17 09:19 11/24/17 09:19 11/24/17 09:19 11/24/17 09:19 - Physical Exam General Appearance: Yes: Nourished, Appropriately Dressed. No: Apparent Distress HEENT: positive: EOMI, RIGOBERTO, TMs Normal, Pharynx Normal. negative: Pale Conjunctivae Neck: positive: Trachea midline, Normal Thyroid, Supple Respiratory/Chest: positive: Lungs Clear, Normal Breath Sounds. negative: Respiratory Distress, Accessory Muscle Use, Rhonchi, Stridor, Wheezing Cardiovascular: positive: Regular Rhythm, Regular Rate. negative: Murmur Gastrointestinal/Abdominal: positive: Soft. negative: Tenderness Extremity: positive: Normal Capillary Refill. negative: Pedal Edema Integumentary: positive: Normal Color, Warm, Moist Neurologic: positive: Motor Strength 5/5 (ambulatory) Heart Score/ECG Review - History History: Slightly suspicious - Electrocardiogram EKG: Normal - Age Age: >/= 65 - Risk Factors Risk Factors Heart Score: Yes Hx Diabetes Based on the list above the patient has:: 1-2 risk factors - Troponin Troponin: </= normal limit - Score Heart Score - Total: 3 - ECG Intrepretation Rhythm: Regular Rhythm (Rate 86. Normal sinus rhythm with PAC. No ST elevation or depression. unchanged from April 2017) ED Treatment Course - LABORATORY CBC & Chemistry Diagram: 11/24/17 10:31 11/24/17 10:31 - ADDITIONAL ORDERS Additional order review: Laboratory Results 11/24/17 10:31 PT with INR 11.30 INR 1.00 D-Dimer 407 11/24/17 10:31 RBC 4.10 MCV 94.4 MCHC 33.8 RDW 14.0 MPV 7.6 Neutrophils % 71.0 Lymphocytes % 19.1 D Monocytes % 7.6 Eosinophils % 1.6 Basophils % 0.7 - RADIOLOGY Radiology Studies Ordered: Category Date Time Status CHEST PA & LAT [RAD] Stat Radiology 11/24/17 10:02 Ordered NECK SOFT TISSUE [RAD] Stat Radiology 11/24/17 11:02 Ordered Medical Decision Making - Medical Decision Making 11/24/17 10:29 Patient complains of intermittent shortness of breath and intermittent whitish phlegm productive cough since Friday after eating ice cream. Patient states he feels as if something is in her throat and complaints of mild midsternal pressure intermittently since yesterday without palpitations, dizziness, sweating, or weakness. Patient concerning for ACS, foreign body, pneumonia, bronchitis, and PE. Patient ordered for cardiac workup including d-dimer, chest x-ray and soft tissue of the neck. Will consult patient's primary care doctor, Cesar shortly. 11/24/17 11:31 Laboratory Tests 11/24/17 11/24/17 10:31 10:31 WBC 8.8 Hgb 13.1 Hct 38.8 Neutrophils % 71.0 Sodium 142 Chloride 106 Carbon Dioxide 28 Anion Gap 8 Creatinine 0.7 Creat Clearance w eGFR > 60 Random Glucose 72 L Calcium 9.3 Magnesium 2.5 H Total Bilirubin 0.7 AST 12 L Creatine Kinase 19 L Troponin I < 0.02 11/24/17 11:33 Chest x-ray shows no evidence of pneumonia, CHF, pleural effusion or pneumothorax. No bulky hilar adenopathy is seen. No evidence of active pulmonary disease. Patient pending soft tissue of the neck. 11/24/17 13:38 soft tissue of the neck shows no foreign body. Patient tolerated lunch without difficulty. Patient will be discharged home with recommendations to follow-up with ENT. Called and spoke to Dr. Jacobs, since Dr. Nagy is currently on vacation and is aware patient's ER visit and disposition. *DC/Admit/Observation/Transfer Diagnosis at time of Disposition: Mild shortness of breath - Discharge Dispostion Disposition: HOME Condition at time of disposition: Good - Referrals Referrals: Med Nagy MD [Primary Care Provider] - Ed Sen MD [Staff Physician] - - Patient Instructions Printed Discharge Instructions: DI for Shortness of Breath Additional Instructions: At this time your x-rays lab work and EKG were negative. I do recommend following up with ENT. I have spoken to your doctor's associate, Dr. Jacobs who agrees with discharge. - Post Discharge Activity
[2017-11-24] MEDS ORDERED: DEXTROSE 5%-0.45% SALINE 1,000 ML IV SCH (11:45)
[2017-11-24 14:44] VITALS: BP 139/55; PULSE 69; TEMP 98.1
--- NOTE | 2017-11-24 16:05 | EKG ---
Test Reason : Blood Pressure : / mmHG Vent. Rate : 086 BPM Atrial Rate : 086 BPM P-R Int : 164 ms QRS Dur : 076 ms QT Int : 382 ms P-R-T Axes : 059 -10 025 degrees QTc Int : 457 ms SINUS RHYTHM WITH PREMATURE ATRIAL COMPLEXES POSSIBLE LEFT ATRIAL ENLARGEMENT BORDERLINE ECG WHEN COMPARED WITH ECG OF 24-MAY-2017 10:48, NO SIGNIFICANT CHANGE WAS FOUND Confirmed by CYRIL CHAMBERLAIN MD ([id number]) on 11/24/2017 4:04:50 PM Referred By: Confirmed By:CYRIL CHAMBERLAIN MD
== END 2017-11-24 14:20 | disposition home or self-care (01) ==
LOC: JER 09:15
PROC: 3E0337Z Introduction of Electrolytic and Water Balance Substance into Peripheral Vein, Percutaneous Approach (ICD-10-PCS; principal; 2017-11-24)
DX: R06.02 Shortness of breath (principal); Z86.2 Personal history of diseases of the blood and blood-forming organs and certain disorders involving the immune mechanism; M48.00 Spinal stenosis, site unspecified
CPT/HCPCS: 36415; 70360-TC-FY; 71046-TC-FY; 80053; 82550; 83735; 84484; 85025; 85379; 85610; 93005; 93010; 96360; 96361; 99284-25

== ENCOUNTER 2019-12-15 13:32 | Emergency (ER) | payer OTHER, MEDICARE ==
[2019-12-15 13:47] VITALS: BP 146/99; PULSE 80; TEMP 97.4; BMI 26.4
--- NOTE | 2019-12-15 14:12 | PDOC ---
History of Present Illness - General Chief Complaint: Injury Stated Complaint: FALL Time Seen by Provider: 12/15/19 13:55 History Source: Patient Exam Limitations: No Limitations - History of Present Illness Initial Comments: 12/15/19 14:09 84-year-old female history of arthritis and constipation presents complaining of right ankle and foot pain status post twisting injury 2 days ago. Patient was gardening in her home when she tripped and twisted her right ankle and foot over a rock landing on her knees. Patient was able to get up on her own and walk. Denies head strike, headache, neck pain, LOC, chest pain, abdominal pain, back pain or any other complaints. She has been taking acetaminophen every 8 hours as needed, last dose was taken last night. ROS: as above PE: GENERAL: well-appearing, NAD HEAD: NCAT EYES: Pupils equal, round and reactive to light, sclera anicteric, conjunctiva clear ENT: pharynx: no erythema, no exudate, uvula midline NECK: supple CHEST: nontender, approximately 5cm x 4cm mobile, nontender mass to left subclavicular area RESP: clear, no w/r/r CARDIO: rrr, no m/g/r ABD: +BS, soft, nontender, non distended BACK: no midline spinal ttp, no CVAT EXTREMITIES: Right medial malleolar swelling, no ecchymoses or bony tenderness to palpation, normal range of motion, positive pedal pulses NEUROLOGICAL: Normal speech, normal gait, 5/5 strength and sensation SKIN: Warm, Dry 12/15/19 14:40 Is this a multiple visit Asthma Patient?: No Past History - Medical History Allergies/Adverse Reactions: Allergies Allergy/AdvReac Type Severity Reaction Status Date / Time No Known Allergies Allergy Verified 11/24/17 09:19 Home Medications: Ambulatory Orders Aspirin [ASA -] 81 mg PO DAILY 11/24/17 Calcium Carbonate [Calcium] 600 mg PO DAILY 11/24/17 Pantoprazole Sodium 40 mg PO DAILY 11/24/17 Prednisone 5 mg PO BID 11/24/17 Anemia: Yes COPD: No Diabetes: No - Immunization History Immunization Up to Date: Yes - Psycho-Social/Smoking History Smoking History: Never smoked Have you smoked in the past 12 months: No - Substance Abuse Hx (Audit-C & DAST Scrn) How often the patient has a drink containing alcohol: Monthly or less Score: In Men: 4 or > Positive; In Women: 3 or > Positive: 1 Screen Result (Pos requires Nsg. Audit-10AR): Negative In the last yr the pt used illegal drug/Rx for NonMed reason: No Score: Yes response is considered Positive: 0 Screen Result (Positive result requires Nsg. DAST-10): Negative *Physical Exam - Vital Signs Last Vital Signs Temp Pulse Resp BP Pulse Ox 97.4 F L 80 18 146/99 99 12/15/19 13:41 12/15/19 13:41 12/15/19 13:41 12/15/19 13:41 12/15/19 13:41 ED Treatment Course - RADIOLOGY Radiology Studies Ordered: Category Date Time Status ANKLE-RIGHT [RAD] Stat Radiology 12/15/19 14:06 Ordered FOOT-RIGHT [RAD] Stat Radiology 12/15/19 14:07 Ordered Medical Decision Making - Medical Decision Making 12/15/19 14:11 84-year-old female history of arthritis and constipation presents complaining of right ankle and foot pain status post twisting injury 2 days ago. Patient was gardening in her home when she tripped and twisted her right ankle and foot over a rock landing on her knees. Patient was able to get up on her own and walk. Denies head strike, headache, neck pain, LOC, chest pain, abdominal pain, back pain or any other complaints. She has been taking acetaminophen every 8 hours as needed, last dose was taken last night. Right foot and ankle x-ray Patient is ambulatory Patient declines acetaminophen at this time 12/15/19 14:39 Right foot and ankle x-ray: No acute fracture Juan David bandage applied to right foot and ankle Advised patient to rest, elevate, apply ice and wear Juan David bandage Follow-up with your doctor in 1 week Discharge - Discharge Information Problems reviewed: Yes Clinical Impression/Diagnosis: Foot sprain Qualifiers: Encounter type: initial encounter Laterality: right Qualified Code(s): S93.601A - Unspecified sprain of right foot, initial encounter Condition: Stable Disposition: HOME - Admission No - Follow up/Referral Referrals: Med Nagy MD [Primary Care Provider] - - Patient Discharge Instructions Additional Instructions: Rest, elevate, apply ice Take acetaminophen 975 every 6 hours as needed for pain Follow-up with your doctor within 1 week - Post Discharge Activity
== END 2019-12-15 14:46 | disposition home or self-care (01) ==
LOC: JERFT 13:32
DX: S93.601A Unspecified sprain of right foot, initial encounter (principal)
CPT/HCPCS: 73610-TC-RT-FY; 73630-TC-RT-FY; 99283-25

== ENCOUNTER 2021-10-16 04:23 | Day surgery (SDC) | payer OTHER, MEDICARE ==
[2021-10-12 08:05] VITALS: BMI 22.4
[2021-10-16] MEDS ORDERED: LIDOCAINE HCL/PF 1% SDV 5ML VIAL ONE (07:22)
[2021-10-16] MEDS ORDERED: BUPIVACAINE HCL/PF 0.5% (5MG/ML) 10 ML VIAL ONE (07:22)
[2021-10-16] MEDS ORDERED: BUPIVACAINE HCL/PF 0.5% (5MG/ML) 10 ML VIAL IJ ONE (10:02)
[2021-10-16 10:46] VITALS: BP 140/68; PULSE 70; TEMP 97
== END 2021-10-16 10:46 | disposition home or self-care (01) ==
LOC: JASU-SURG 04:23
PROVIDERS: ATTEND Pain Medicine Pain Medicine
PROC: 3E0T33Z Introduction of Anti-inflammatory into Peripheral Nerves and Plexi, Percutaneous Approach (ICD-10-PCS; 2021-10-16)
PROC: 3E0T3BZ Introduction of Anesthetic Agent into Peripheral Nerves and Plexi, Percutaneous Approach (ICD-10-PCS; principal; 2021-10-16 08:45)
DX: M47.812 Spondylosis without myelopathy or radiculopathy, cervical region (principal)
CPT/HCPCS: 76000-TC-FY